=== PATIENT | female | born 1935 | race Caucasian/White ===

== ENCOUNTER 2023-02-11 23:25 | Outpatient (CLI) | payer MEDICARE, BC, SELFPAY | END 2023-02-11 23:26 | disposition home or self-care (01) | LOC: AMB 02-12 19:10 | PROVIDERS: PCP Family Medicine; Visit Provider Internal Medicine | DX: R53.1 Weakness (principal) | CPT/HCPCS: A0998 ==

== ENCOUNTER 2023-10-16 16:26 | Outpatient (CLI) | payer MEDICARE, BC, SELFPAY | END 2023-10-16 16:27 | disposition home or self-care (01) | LOC: AMB 10-20 10:28 | PROVIDERS: PCP Family Medicine; Visit Provider Family Medicine | DX: M25.552 Pain in left hip (principal) | CPT/HCPCS: A0425; A0429 ==

== ENCOUNTER 2023-10-16 16:47 | Emergency (ER) | payer MEDICARE, BC, SELFPAY ==
--- NOTE | 2023-10-16 16:49 | ED.GENADULT ---
HPI - General Adult General Time Seen by Provider: 16:49 Date Seen: 10/16/23 Chief complaint: Extremity Pain/Injury, Lower Stated complaint: Hip pain Time Seen by Provider: 10/16/23 16:49 Source: patient, EMS, RN notes reviewed and old records reviewed Mode of arrival: EMS Limitations: no limitations History of Present Illness HPI narrative: 88-year-old female who comes in today by EMS with hip pain. Patient has atraumatic left hip pain on standing from a sitting position. No fall or injury. No back pain. Prior hip replacement on this side. No fever chills. Related Data Home Medications Medication Instructions Recorded Confirmed atorvastatin 10 mg tablet 10 mg PO DAILY 06/29/23 10/16/23 multivitamin (Multiple Vitamins 1 tab PO QDAY 06/29/23 10/16/23 tablet) warfarin 2 mg tablet 2 mg PO DAILY 06/29/23 10/16/23 Allergies Allergy/AdvReac Type Severity Reaction Status Date / Time adhesive Allergy Mild Verified 10/16/23 16:59 Penicillins AdvReac nausea and Verified 10/16/23 16:59 vomiting Sulfa (Sulfonamide AdvReac Nausea Verified 10/16/23 16:59 Antibiotics) PFSH [facility] Medical History (Updated 10/16/23 @ 17:03 by Sam Ren MD) Rotator cuff tear arthropathy ?M75.100 - Unspecified rotator cuff tear or rupture of unspecified shoulder, not specified as traumatic (ICD-10) ?M12.819 - Other specific arthropathies, not elsewhere classified, unspecified shoulder (ICD-10) Right shoulder pain ?M25.511 - Pain in right shoulder (ICD-10) MRSA (methicillin resistant Staphylococcus aureus) (06/22/06) ?A49.02 - Methicillin resistant Staphylococcus aureus infection, unspecified site (ICD-10) Hypokalemia ?E87.6 - Hypokalemia (ICD-10) Hip strain ?S76.019A - Strain of muscle, fascia and tendon of unspecified hip, initial encounter (ICD-10) Hemarthrosis of shoulder region ?M25.019 - Hemarthrosis, unspecified shoulder (ICD-10) Hemarthrosis of right knee ?M25.061 - Hemarthrosis, right knee (ICD-10) Fracture of hip ?S72.009A - Fracture of unspecified part of neck of unspecified femur, initial encounter for closed fracture (ICD-10) Deep vein thrombosis, lower left extremity (2006) ?I82.402 - Acute embolism and thrombosis of unspecified deep veins of left lower extremity (ICD-10) Bilateral pulmonary embolism (2005) ?I26.99 - Other pulmonary embolism without acute cor pulmonale (ICD-10) Colon cancer ?C18.9 - Malignant neoplasm of colon, unspecified (ICD-10) Surgical History (Updated 06/29/23 @ 09:45 by Perla Cardoza ~ [facility], [facility]) 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) ?Z96.642 - Presence of left artificial hip joint (ICD-10) H/O partial resection of colon (01/05/06) ?Z90.49 - Acquired absence of other specified parts of digestive tract (ICD-10) Status post fine needle aspiration (04/04/12) ?Z98.890 - Other specified postprocedural states (ICD-10) History of phacoemulsification of cataract of right eye with intraocular lens implantation (07/24/14) ?Z98.41 - Cataract extraction status, right eye (ICD-10) ?Z96.1 - Presence of intraocular lens (ICD-10) History of phacoemulsification of cataract of left eye with intraocular lens implantation (08/21/14) ?Z98.42 - Cataract extraction status, left eye (ICD-10) ?Z96.1 - Presence of intraocular lens (ICD-10) History of ventral hernia repair (05/04/06) ?Z98.890 - Other specified postprocedural states (ICD-10) ?Z87.19 - Personal history of other diseases of the digestive system (ICD-10) History of colostomy (1999) 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) ?Z96.611 - Presence of right artificial shoulder joint (ICD-10) Social History (Updated 06/29/23 @ 09:39 by Perla Cardoza ~ [facility], [facility]) Smoking Status: Never smoker Do you use any of these nicotine containing products: None Second hand tobacco smoke exposure: No How often do you have a drink containing alcohol: 2-4 times a month AUDIT-C Alcohol total score: 2 Non-prescribed substance use: denies use Exam Narrative: Exam Narrative: General: well nourished , NAD Head: Atraumatic and normocephalic ENT: External ears and external nose are normal Eyes: Conjunctiva clear, pupils are equal reactive, external ocular motions are intact Neck: Full spontaneous range of motion of the neck Lungs: No respiratory distress Musculoskeletal: Tenderness the left hip, pain with adduction across midline, mild pain with forward flexion Neurologic: No gross focal neurologic deficits Skin: No rashes Psych: Mood and affect are appropriate Const: Vital Signs, click to edit/add: Vital Signs - 24 hr 10/16/23 16:50 Temperature 98.7 F Pulse Rate [Left P ulse Oximeter] 76 Respiratory Rate 16 Blood Pressure [Ri ght Upper Arm] 192/99 H Pulse Oximetry 99 Course Course ED Course: Patient seen and examined, reviewed prior orthopedic visit from June 18 patient was seen with osteoarthritis of the left knee, had a knee injection at that time with Marcaine and Depo-Medrol. Patient presents with left hip pain, no fall or injury, she noted that when she stood up from a sitting position. On exam she has tenderness over the greater trochanter and some pain with adduction. Prior hip replacement, symptoms with are most consistent with greater trochanteric pain syndrome. Labs are ordered along with ibuprofen. Reevaluation(s) Time of Reevaluation #1: 17:27 Reevaluation #1: X-ray of the left hip independently interpreted by me does not demonstrate any acute abnormality, prosthetic is in place. Patient to ambulate to the bathroom and will dispo based on ambulation ability and pain control pain Vital Signs Vital signs: Initial Vital Signs Temperature 98.7 F 10/16/23 16:50 Temperature Source Temporal Artery Scan 10/16/23 16:50 Pulse Rate 76 10/16/23 16:50 Respiratory Rate 16 10/16/23 16:50 Blood Pressure 192/99 H 10/16/23 16:50 Blood Pressure Mean 130 H 10/16/23 16:50 Blood Pressure Position Supine 10/16/23 16:50 Pulse Oximetry 99 10/16/23 16:50 Vital Signs Temperature 98.7 F 10/16/23 16:50 Pulse Rate 76 10/16/23 16:50 Respiratory Rate 16 10/16/23 16:50 Blood Pressure 192/99 H 10/16/23 16:50 Pulse Oximetry 99 10/16/23 16:50 Temperature 98.7 F 10/16/23 16:50 Pulse Rate 76 10/16/23 16:50 Respiratory Rate 16 10/16/23 16:50 Blood Pressure 192/99 H 10/16/23 16:50 Pulse Oximetry 99 10/16/23 16:50 Medications Administered Medications: Generic Name Dose Route Start Last Admin Trade Name Freq PRN Reason Stop Dose Admin Hydrocodone Bitart/Acetaminophen 1 tab 10/16/23 18:25 10/16/23 18:32 Hydrocodone-Acetamin 5-325 Mg 1 Tab PO 10/16/23 18:26 1 tab ONCE ONE Administration Discontinued Medications Generic Name Dose Route Start Last Admin Trade Name Freq PRN Reason Stop Dose Admin Ibuprofen 400 mg 10/16/23 17:01 10/16/23 17:21 Ibuprofen 600 Mg Tablet PO 10/16/23 17:02 400 mg ONCE ONE Administration Lidocaine 1 patch 10/16/23 17:01 10/16/23 17:20 Lidocaine 5% Patch TRANSDERMA 10/16/23 17:02 1 patch ONCE ONE Administration Protocol Discharge Plan Discharge Clinical Impression: Greater trochanteric pain syndrome of left lower extremity Patient Disposition: Home, Self-Care Condition: Stable Instructions: Hip Pain (ED) Additional Instructions: Take Tylenol and ibuprofen Activity Level: Activity as Tolerated and Use Walker Discharge Diet: Diabetic Prescriptions: No Action warfarin 2 mg tablet 2 mg PO DAILY atorvastatin 10 mg tablet 10 mg PO DAILY multivitamin [Multiple Vitamins] Tablet 1 tab PO QDAY Follow Up/Referrals: Geri Clancy DO [Primary Care Provider] - Stand Alone Forms: MyHealth Info Instructions
[2023-10-16 16:50] VITALS: BP 192/99; PULSE 76; RESP 16; TEMP 37.1; O2SAT 99; BMI 23.6
--- NOTE | 2023-10-16 17:01 | XR_ITS ---
Patient: DARSHANA BHARDWAJ Facility:?[facility] Patient ID:?[id number] Site Patient ID:?[id number]. Site :?[id number] Study:?XRay-Hip Left 2 VIEW AND PELVIS-10/16/2023 5:20:59 PM Ordering Physician:DILMA Final Report: INDICATION: Pain no trauma TECHNIQUE: AP pelvis and left hip views FINDINGS/IMPRESSION: Normal alignment. No acute fracture or acute osseous abnormalities are visualized. Left hip arthroplasty. Vascular calcifications. Dictated by Nuzhat Booker MD @ 10/16/2023 5:42:16 PM Signed by:?Nuzhat Booker MD @10/16/2023 5:42:16 PM (Electronic Signature)
[2023-10-16] MEDS: LIDOCAINE 5% PATCH 1 PATCH TRANSDERMA (17:20)
[2023-10-16] MEDS: IBUPROFEN 600 MG TABLET 400 MG PO (17:21)
[2023-10-16 18:30] VITALS: BP 189/96
[2023-10-16] MEDS: HYDROCODONE-ACETAMIN 5-325 MG 1 TAB PO (18:32)
== END 2023-10-16 19:22 | disposition home or self-care (01) ==
LOC: ED 17:37
PROVIDERS: Emergency Provider Family Medicine; PCP Family Medicine
DX: M70.62 Trochanteric bursitis, left hip (principal)
CPT/HCPCS: 73502; 99283; 99284; A9270

== ENCOUNTER 2023-10-31 09:14 | Emergency (ER) | payer MEDICARE, BC, SELFPAY ==
[2023-10-31 09:21] VITALS: BP 109/68; PULSE 80; RESP 18; TEMP 36.9; O2SAT 99; BMI 22.8
--- NOTE | 2023-10-31 09:34 | CRLHL7_ITS ---
For Patients: As a result of the Century Cures Act, medical imaging exams and procedure reports are released immediately into your electronic medical record. You may view this report before your referring provider. If you have questions, please contact your health care provider. INDICATION: Pain x2 weeks, extensive bruising to thigh. (Sic) COMPARISON: 10/16/2023 TECHNIQUE: Views: AP pelvis, AP left hip, frogleg lateral left hip (3 images) FINDINGS: Mineralization: Diffuse osteopenia. Alignment: Normal. Bones and Joints: No fracture is identified. Intact bipolar left hip arthroplasty with a cemented femoral stem. Mild osteoarthrosis of the right hip and bilateral sacroiliac joints. Soft Tissues: Unremarkable. Vascular calcifications are noted incidentally. IMPRESSION: No acute findings. Incidental findings described above. Dictated by Kelvin Alberts MD @ 10/31/2023 10:09:44 AM (Electronically Signed)
--- NOTE | 2023-10-31 09:38 | ED_ITS ---
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 She presents because of concerns with bruising to her left thigh. Apparently she was here couple of weeks ago after standing up and experiencing pain in her left hip. She does have a history of hip replacement on that side. She had x-rays at that time that showed no acute findings. At some point after that she noted bruising developing on her left thigh. This is what brought her in today, she said she was concerned that it would get worse. She still has some pain in the hip, but she says it is hard for her to know whether it is better or not because she also has pain in her knee and her foot on that side. She believes her last INR was a few weeks ago was 2. She denies any trauma. Related Data Home Medications ?Medication ?Instructions ?Recorded ?Confirmed atorvastatin 10 mg tablet 10 mg PO DAILY 06/29/23 10/16/23 multivitamin (Multiple Vitamins 1 tab PO QDAY 06/29/23 10/16/23 tablet) warfarin 2 mg tablet 2 mg PO DAILY 06/29/23 10/16/23 Allergies Allergy/AdvReac Type Severity Reaction Status Date / Time adhesive Allergy Mild Verified 10/16/23 16:59 Penicillins AdvReac nausea and Verified 10/16/23 16:59 vomiting Sulfa (Sulfonamide AdvReac Nausea Verified 10/16/23 16:59 Antibiotics) Review of Systems Status of ROS: Reports: 6 or more systems reviewed and unremarkable except as noted in History and below [facility] Medical History Rotator cuff tear arthropathy ?M75.100 - Unspecified rotator cuff tear or rupture of unspecified shoulder, not specified as traumatic (ICD-10) ?M12.819 - Other specific arthropathies, not elsewhere classified, unspecified shoulder (ICD-10) Right shoulder pain ?M25.511 - Pain in right shoulder (ICD-10) MRSA (methicillin resistant Staphylococcus aureus) (06/22/06) ?A49.02 - Methicillin resistant Staphylococcus aureus infection, unspecified site (ICD-10) Hypokalemia ?E87.6 - Hypokalemia (ICD-10) Hip strain ?S76.019A - Strain of muscle, fascia and tendon of unspecified hip, initial encounter (ICD-10) Hemarthrosis of shoulder region ?M25.019 - Hemarthrosis, unspecified shoulder (ICD-10) Hemarthrosis of right knee ?M25.061 - Hemarthrosis, right knee (ICD-10) Fracture of hip ?S72.009A - Fracture of unspecified part of neck of unspecified femur, initial encounter for closed fracture (ICD-10) Deep vein thrombosis, lower left extremity (2005) ?I82.402 - Acute embolism and thrombosis of unspecified deep veins of left lower extremity (ICD-10) Bilateral pulmonary embolism (2005) ?I26.99 - Other pulmonary embolism without acute cor pulmonale (ICD-10) Colon cancer ?C18.9 - Malignant neoplasm of colon, unspecified (ICD-10) Surgical History 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) ?Z96.642 - Presence of left artificial hip joint (ICD-10) H/O partial resection of colon (01/05/06) ?Z90.49 - Acquired absence of other specified parts of digestive tract (ICD- 10) Status post fine needle aspiration (04/04/12) ?Z98.890 - Other specified postprocedural states (ICD-10) History of phacoemulsification of cataract of right eye with intraocular lens implantation (07/24/14) ?Z98.41 - Cataract extraction status, right eye (ICD-10) ?Z96.1 - Presence of intraocular lens (ICD-10) History of phacoemulsification of cataract of left eye with intraocular lens implantation (08/21/14) ?Z98.42 - Cataract extraction status, left eye (ICD-10) ?Z96.1 - Presence of intraocular lens (ICD-10) History of ventral hernia repair (05/04/06) ?Z98.890 - Other specified postprocedural states (ICD-10) ?Z87.19 - Personal history of other diseases of the digestive system (ICD-10) History of colostomy (1999) 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 In general, alert, well-appearing woman. Extremities: She has extensive subcutaneous bruising noted on the left anterior an inner thigh. There is no significant hematoma, no significant swelling. Distal CMS intact. She has a little bit of an effusion noted in the left knee but there is no erythema warmth, range of motion is intact. She says that knee is ?always bad. Skin: Warm and dry. No other bruising. Const: Vital Signs, click to edit/add: Vital Signs - 24 hr 10/31/23 09:21 Temperature 98.4 F Pulse Rate [Right Pulse Oximeter] 80 Respiratory Rate 18 Blood Pressure [Ri ght Upper Arm] 109/68 Pulse Oximetry 99 Oxygen Delivery Me thod Room Air Documenting provider has reviewed patient's vital signs: yes Course Course ED Course: Nurse reports that she was able to bear weight on the left leg seemingly without difficulty. I reviewed prior records, including the x-ray from 2 weeks ago. I do think it is worthwhile checking an INR in making sure that she is not supratherapeutic. Her exam today simply shows bruising, likely related to whatever event happened a couple of weeks ago. Repeat x-rays of the left hip are negative by my review, negative by radiology read. INR is therapeutic at 2.5. Discussed that this is bruising, will resolve on its own although it may take several weeks. No significant hematoma is seen here but if she has worsening swelling or pain, redness, fever etcetera she should return. Otherwise, Tylenol if needed. Ice may or may not be helpful at this point. She is discharged ambulatory. Primary care follow-up as needed. Vital Signs Vital signs: Initial Vital Signs Temperature 98.4 F 10/31/23 09:21 Temperature Source Temporal Artery Scan 10/31/23 09:21 Pulse Rate 80 10/31/23 09:21 Respiratory Rate 18 10/31/23 09:21 Blood Pressure 109/68 10/31/23 09:21 Blood Pressure Mean 81 10/31/23 09:21 Blood Pressure Position Sitting 10/31/23 09:21 Pulse Oximetry 99 10/31/23 09:21 Oxygen Delivery Method Room Air 10/31/23 09:21 Vital Signs Temperature 98.4 F 10/31/23 09:21 Pulse Rate 80 10/31/23 09:21 Respiratory Rate 18 10/31/23 09:21 Blood Pressure 109/68 10/31/23 09:21 Pulse Oximetry 99 10/31/23 09:21 Oxygen Delivery Method Room Air 10/31/23 09:21 Temperature 98.4 F 10/31/23 09:21 Pulse Rate 80 10/31/23 09:21 Respiratory Rate 18 10/31/23 09:21 Blood Pressure 109/68 10/31/23 09:21 Pulse Oximetry 99 10/31/23 09:21 Oxygen Delivery Method Room Air 10/31/23 09:21 Medical Decision Making Lab Data Labs: Lab Results 10/31/23 Range/Units 10:05 INR 2.54 H (0.91-1.10) Discharge Plan Discharge Clinical Impression: Traumatic ecchymosis of left thigh Patient Disposition: Home, Self-Care Condition: Stable Instructions: Contusion in Adults (ED) Additional Instructions: Your exam shows extensive bruising of your thigh. X-rays today remain normal without evidence of any broken bones. Your INR is therapeutic at 2.5. Bruising will slowly resolve but this can take weeks. If you have significant swelling or increasing pain, redness, fever, return for re-evaluation. Prescriptions: No Action warfarin 2 mg tablet 2 mg PO DAILY atorvastatin 10 mg tablet 10 mg PO DAILY multivitamin [Multiple Vitamins] Tablet 1 tab PO QDAY Follow Up/Referrals: Geri Clancy DO [Primary Care Provider] - Stand Alone Forms: MyHealth Info Instructions
[2023-10-31 10:27] LABS: INR 2.54 (0.91-1.10); Prothrombin Time 29.3 Seconds
== END 2023-10-31 11:13 | disposition home or self-care (01) ==
PROVIDERS: Emergency Provider Emergency Medicine; PCP Family Medicine
DX: M79.652 Pain in left thigh (principal); R23.3 Spontaneous ecchymoses
CPT/HCPCS: 36415; 73502; 85610; 99283; 99284

== ENCOUNTER 2023-11-03 06:26 | Outpatient (CLI) | payer MEDICARE, BC, SELFPAY | END 2023-11-03 06:27 | disposition home or self-care (01) | LOC: AMB 11-06 09:23 | PROVIDERS: PCP Family Medicine; Visit Provider Family Medicine | DX: R53.1 Weakness (principal) | CPT/HCPCS: A0998 ==

== ENCOUNTER 2024-02-12 08:50 | Outpatient (CLI) | payer MEDICARE, BC, SELFPAY | END 2024-02-12 08:51 | disposition home or self-care (01) | LOC: AMB 02-14 03:17 | PROVIDERS: PCP Family Medicine; Visit Provider Emergency Medicine | DX: S49.91XA Unspecified injury of right shoulder and upper arm, initial encounter (principal); R55 Syncope and collapse; W18.11XA Fall from or off toilet without subsequent striking against object, initial encounter; Y92.031 Bathroom in apartment as the place of occurrence of the external cause | CPT/HCPCS: A0425; A0427 ==

== ENCOUNTER 2024-02-12 09:23 | Emergency (ER) | payer MEDICARE, BC, SELFPAY ==
[2024-02-12] VITALS (11 sets, daily range): BP systolic 119–144; BP diastolic 72–87; PULSE 67–81; RESP 16; TEMP 35.9; O2SAT 93–98
[2024-02-12] MEDS: ONDANSETRON 2 MG/ML inj 4 MG IVP (09:27)
[2024-02-12] MEDS: fentaNYL 100 MCG/2 ML inj 50 MCG IVP ×2 (09:27→10:25)
--- NOTE | 2024-02-12 09:28 | CRLHL7_ITS ---
For Patients: As a result of the 21st Century Cures Act, medical imaging exams and procedure reports are released immediately into your electronic medical record. You may view this report before your referring provider. If you have questions, please contact your health care provider. INDICATION: Trauma, abdominal pain, right hip pain, warfarin, shoulder fracture. COMPARISON: Same-day CT cervical spine, shoulder radiograph 02/12/2024 TECHNIQUE: CT chest, abdomen, and pelvis with contrast. Multiplanar axial, coronal, and sagittal reformats are included. MIP images to improve detection of pulmonary nodules are included. Intravenous contrast: 69 mL Isovue 370. FINDINGS: CHEST Airway: Normal tracheobronchial tree. Lungs: No worrisome pulmonary nodules. No consolidations. Normal appearance of the pulmonary interstitium. Pleura: No pleural effusion. No pneumothorax. Lymph nodes: No thoracic adenopathy. Mediastinum: No pneumomediastinum. Macro nodular thyroid with several coarse calcifications. Heart and great vessels: No pericardial effusion. Normal cardiac chamber size. Scattered atherosclerotic plaques. No aortic aneurysm. Normal caliber main pulmonary artery. Chest wall: Normal. No masses. ABDOMEN AND PELVIS Liver: Normal. No mass. Gallbladder and bile ducts: Normal gallbladder. No bile duct dilation. Pancreas: Normal. Spleen: Normal. Adrenal glands: Normal. Kidneys: Normal parenchyma. No cyst or solid mass. No calculi. No urinary tract dilation. Urinary bladder: Partially filled. Pelvis: See below regarding pelvic hematoma. Small left ovarian cyst measures 2.2 cm.. Vessels: Atherosclerotic vascular calcifications, moderate to heavy. No aortic aneurysm. Bowel: Left lower quadrant colostomy. Very large parastomal hernia containing redundant colon. Moderate amount of stool in the residual rectum. No dilated or inflamed small bowel. Lymph nodes: No adenopathy. Peritoneum: No ascites or free air Abdominal wall: Large parastomal hernia. BONES: Mildly impacted subcapital right femoral neck fracture. Mildly displaced right medial superior pubic ramus fracture with a small adjacent extra pelvic hematoma. No findings that are suspicious for active bleeding on this single phase CT. Nondisplaced right inferior pubic ramus fracture. T8 compression fracture of indeterminate acuity with about 50 percent loss of height. No cortical disruption or posterior cortical retropulsion. Right humeral periprosthetic fracture seen on the milling machine operator image. Left hip arthroplasty. No focally destructive bone lesions. IMPRESSION: 1. Mildly displaced right superior pubic ramus fracture with a small extraperitoneal hematoma. Nondisplaced right inferior pubic ramus fracture. 2. Mildly impacted right subcapital femoral neck fracture. 3. T8 vertebral body compression fracture of indeterminate acuity. No cortical disruption or paraspinal hematoma. 4. Right periprosthetic humeral fracture seen on the milling machine operator image. 5. No visceral trauma seen. Impression points 1 and [address] Rocha at about 10 a.m. on 02/12/2024. Please note that all CT scans at this facility use dose modulation, iterative reconstruction, and/or weight-based dosing when appropriate to reduce radiation dose to as low as reasonably achievable. Dictated by Hui Thomas MD @ 02/12/2024 10:07:05 AM (Electronically Signed)
--- NOTE | 2024-02-12 09:28 | CRLHL7_ITS ---
For Patients: As a result of the Cures Act, medical imaging exams and procedure reports are released immediately into your electronic medical record. You may view this report before your referring provider. If you have questions, please contact your health care provider. Indication: Trauma, fall. Technique: Right elbow 2 views. Comparison: None. Findings: Bones: Alignment is normal. No fractures or bone lesions. Joint spaces: Unremarkable. No sign of joint effusion. Soft tissues: Unremarkable. Impression: No sign of acute injury. Dictated by Sebastian Ortega MD @ 02/12/2024 10:26:03 AM (Electronically Signed)
--- NOTE | 2024-02-12 09:28 | CRLHL7_ITS ---
For Patients: As a result of the Cures Act, medical imaging exams and procedure reports are released immediately into your electronic medical record. You may view this report before your referring provider. If you have questions, please contact your health care provider. INDICATION: Fall, distracting injury. COMPARISON: None. TECHNIQUE: CT of the cervical spine without contrast. Multiplanar axial, coronal, and sagittal reformats were reconstructed. FINDINGS: No fracture. Exaggerated cervical lordosis. No listhesis. Multilevel moderate to severe disc degenerative change. Multilevel moderate to severe facet arthritis. No severe neural foraminal narrowing. No central canal stenosis. No destructive bony lesions. No cervical prevertebral soft tissue swelling macro nodular thyroid with several calcifications. IMPRESSION: No acute or traumatic findings on cervical spine CT. Please note that all CT scans at this facility use dose modulation, iterative reconstruction, and/or weight-based dosing when appropriate to reduce radiation dose to as low as reasonably achievable. Dictated by Hui Thomas MD @ 02/12/2024 9:58:11 AM (Electronically Signed)
--- NOTE | 2024-02-12 09:28 | CRLHL7_ITS ---
For Patients: As a result of the Cures Act, medical imaging exams and procedure reports are released immediately into your electronic medical record. You may view this report before your referring provider. If you have questions, please contact your health care provider. Indication: Trauma, fall. Technique: Right shoulder 2 views. Comparison: 02/27/2020. Findings/Impression: Bones: Acute displaced periprosthetic fracture present in the proximal shaft of the right humerus. No other osseous abnormality. Joint spaces: Total shoulder arthroplasty is present with the humeral component affected by the fracture. Soft tissues: Unremarkable. Dictated by Sebastian Ortega MD @ 02/12/2024 10:27:14 AM (Electronically Signed)
--- NOTE | 2024-02-12 09:29 | CRLHL7_ITS ---
For Patients: As a result of the Century Cures Act, medical imaging exams and procedure reports are released immediately into your electronic medical record. You may view this report before your referring provider. If you have questions, please contact your health care provider. INDICATION: Fall, scalp laceration, on warfarin. COMPARISON: 02/07/2016 TECHNIQUE: CT of the brain / head without intravenous contrast. Multiplanar axial, coronal, and sagittal reformats were reconstructed. FINDINGS: Acute subdural hematoma along the right lateral convexity. Hematoma measures up to 1.2 centimeters in maximum thickness. There is some effacement of the immediately underlying subarachnoid spaces. There is 0.5 cm [id number] midline shift. Age-related parenchymal volume loss. No acute or subacute cortically based infarct. Scattered white matter hypodensities may be related to chronic microvascular ischemia. No mass or mass effect. Normal ventricles. No skull fractures. No worrisome focal bone lesion. Paranasal sinuses and mastoids are clear. Right periorbital soft tissue contusion. No orbital fracture or globe injury. IMPRESSION: Right lateral convexity acute subdural hematoma. There is 5 millimeters of associated midline shift. Discussed with Dr. Rocha at 9:55 a.m. on 02/12/2024. Please note that all CT scans at this facility use dose modulation, iterative reconstruction, and/or weight-based dosing when appropriate to reduce radiation dose to as low as reasonably achievable. Dictated by Hui Thomas MD @ 02/12/2024 9:55:58 AM (Electronically Signed)
[2024-02-12 09:34] LABS: Creatinine, Point-of-Care* 0.9 mg/dl (0.6-1.3)
[2024-02-12 09:40] LABS: Basophils Absolute Auto 0.04 K/uL (0.00-0.30); Basophils Percent Auto 0.4 % (0.0-3.0); Eosinophils Absolute Auto 0.09 K/uL (0.00-0.50); Eosinophils Percent Auto 0.9 % (0.0-7.0); Hematocrit 31.7 % (33.0-51.0); Hemoglobin* 10.7 gm/dL (12.0-16.0); Immature Granulocytes Abs Auto 0.13 K/uL (0.00-0.30); Immature Granulocytes Pct Auto 1.4 %; Mean Corpuscular HGB Conc 34 gm/dL (32-36); Mean Corpuscular Hemoglobin 32 pg (26-34); Mean Corpuscular Volume 95 fL (80-100); Monocytes Percent Auto 4.5 % (0.0-11.0); Neutrophils Percent Auto 74.8 % (42.0-72.0); Platelet Count* 162 K/uL (140-440); RDW Coefficient of Variation % 11.9 % (11.5-15.5); Red Blood Count 3.34 m/uL (4.00-5.20); White Blood Count* 9.52 K/uL (4.50-11.00)
[2024-02-12 09:41] LABS: Lactate* 4.8 mmol/L (0.5-1.9); Slide Review Reflex No
[2024-02-12 09:49] LABS: Chloride* 108 mmol/L (96-114); Potassium* 3.3 mmol/L (3.6-5.1); Sodium* 139 mmol/L (135-149)
[2024-02-12 09:51] LABS: Creatinine* 0.7 mg/dL (0.5-1.5); Estimated Glomerular Filt Rate 83 ml/min; INR 2.62 (0.91-1.10)
[2024-02-12 09:52] LABS: Anion Gap 12 mEq/L (7-15); Blood Urea Nitrogen* 26 mg/dL (7-30); Carbon Dioxide* 19 mmol/L (20-32); Glucose* 157 mg/dL (60-115)
[2024-02-12 10:04] LABS: Troponin I* 0.01 ng/mL (0.01-0.04)
[2024-02-12] MEDS: PHYTONADIONE (VIT K1) 10 MG in 0.9 % SODIUM CHLORIDE 50 ml 50 ML 100 MG IVPB (10:08)
--- NOTE | 2024-02-12 10:12 | ED_ITS ---
HPI - General Adult General Date Seen: 02/12/24 Chief complaint: Syncope/Fainted Stated complaint: fall Time Seen by Provider: 02/12/24 09:28 History of Present Illness HPI narrative: This is an 88-year-old female on warfarin brought to the ER today by EMS from [facility] apartment for a ground level fall with head injury, possible shoulder dislocation. History from paramedics is that the patient got up sometime this morning, probably around 7:00 a.m. (maybe 2 hours prior to arrival) to go to the bathroom. She got dizzy when she stood up off the toilet and fell to the floor bathroom. No reported loss of consciousness. She injured herself when he fell she fell. She hit her head. Unknown she had loss of consciousness. She also injured her right shoulder and right hip. She was unable to get off the floor. She was banging on the floor to try to get help from her neighbors but it took a couple of hours until anyone heard. One of her neighbors heard her banging on the floor, and they gained entrance to her apartment with the assistance of the full service supervisor of the building. EMS was called. EMS reports that there was a fair amount of dry blood on the floor of her bathroom, maybe 200 mL. The patient was alert. No headache. Mildly nauseous. She had significant pain with obvious deformity and bruising at the right shoulder. Also possibly right hip pain. She was brought in immediately by EMS. Pre-hospital TTA was called by paramedics. History from the patient confirms that she was feeling normally last night. She fell getting off the toilet this morning. She thinks it was probably around 7:00 a.m.. It definitely did not occur overnight or last night. She was on the floor a couple of hours at most. She is not sure how she fell. She may have gotten dizzy when she stood upper maybe passed out. She does not recall any chest pain or palpitations. She is complaining primarily of right shoulder pain. She has intact distal wiggling her fingers and intact distal sensation in her hand. She also has pain in her right hip and cannot bend and flex her right hip. She had bleeding from a right eyebrow laceration. She denies headache. She is mildly nauseous. She know she is on warfarin. No other meds. Unknown recent INR Related Data Home Medications ?Medication ?Instructions ?Recorded ?Confirmed atorvastatin 10 mg tablet 10 mg PO DAILY 06/29/23 10/16/23 multivitamin (Multiple Vitamins 1 tab PO QDAY 06/29/23 10/16/23 tablet) warfarin 2 mg tablet 2 mg PO DAILY 06/29/23 10/16/23 Allergies Allergy/AdvReac Type Severity Reaction Status Date / Time adhesive Allergy Mild Verified 10/16/23 16:59 Penicillins AdvReac nausea and Verified 10/16/23 16:59 vomiting Sulfa (Sulfonamide AdvReac Nausea Verified 10/16/23 16:59 Antibiotics) [facility] Medical History Rotator cuff tear arthropathy ?M75.100 - Unspecified rotator cuff tear or rupture of unspecified shoulder, not specified as traumatic (ICD-10) ?M12.819 - Other specific arthropathies, not elsewhere classified, unspecified shoulder (ICD-10) Right shoulder pain ?M25.511 - Pain in right shoulder (ICD-10) MRSA (methicillin resistant Staphylococcus aureus) (06/22/06) ?A49.02 - Methicillin resistant Staphylococcus aureus infection, unspecified site (ICD-10) Hypokalemia ?E87.6 - Hypokalemia (ICD-10) Hip strain ?S76.019A - Strain of muscle, fascia and tendon of unspecified hip, initial encounter (ICD-10) Hemarthrosis of shoulder region ?M25.019 - Hemarthrosis, unspecified shoulder (ICD-10) Hemarthrosis of right knee ?M25.061 - Hemarthrosis, right knee (ICD-10) Fracture of hip ?S72.009A - Fracture of unspecified part of neck of unspecified femur, initial encounter for closed fracture (ICD-10) Deep vein thrombosis, lower left extremity (2005) ?I82.402 - Acute embolism and thrombosis of unspecified deep veins of left lower extremity (ICD-10) Bilateral pulmonary embolism (2005) ?I26.99 - Other pulmonary embolism without acute cor pulmonale (ICD-10) Colon cancer ?C18.9 - Malignant neoplasm of colon, unspecified (ICD-10) Surgical History 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) ?Z96.642 - Presence of left artificial hip joint (ICD-10) H/O partial resection of colon (01/05/06) ?Z90.49 - Acquired absence of other specified parts of digestive tract (ICD- 10) Status post fine needle aspiration (04/04/12) ?Z98.890 - Other specified postprocedural states (ICD-10) History of phacoemulsification of cataract of right eye with intraocular lens implantation (07/24/14) ?Z98.41 - Cataract extraction status, right eye (ICD-10) ?Z96.1 - Presence of intraocular lens (ICD-10) History of phacoemulsification of cataract of left eye with intraocular lens implantation (08/21/14) ?Z98.42 - Cataract extraction status, left eye (ICD-10) ?Z96.1 - Presence of intraocular lens (ICD-10) History of ventral hernia repair (05/04/06) ?Z98.890 - Other specified postprocedural states (ICD-10) ?Z87.19 - Personal history of other diseases of the digestive system (ICD-10) History of colostomy (1999) 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 Speaking clearly. Phonation normal. No stridor. B- breathing easily. Lung sounds clear and equal. Oxygen saturation normal on room air C- she has quite a bit of dry blood on the right side of her face, in her right hair, also dry blood on her right arm and down to her right fingers. Paramedics report that there was a pool of blood may be a foot in diameter on the floor around her body and that the blood was dry and she was sticky to the floor when they arrived. no active arterial or brisk bleeding. She looks pale, but Blood pressure stable. Symmetric pulses and cap refill in 4 extremities. D- alert and oriented x3. GCS 15. No focal deficits. Constitutional: Appears well-developed and well-nourished. Alert. Conversant. Non toxic. HENT: Head: Dry blood on her right face and right scalp. After we washed up blood it appears that she has a small right eyebrow laceration. No definite scalp laceration. No active bleeding after cleaning up the blood. Laceration will require primary closure but we will defer that to the receiving trauma center. Nose: Nose normal. Mouth/Throat: Oral mucosa is clear and moist. no trismus. Pharynx normal. Tonsils symmetric. No tonsillar enlargement, erythema, or exudate. Eyes: Conjunctivae normal. EOM normal. Pupils equal, round, and reactive to light. No scleral icterus. Neck: Normal range of motion. Neck supple. No tracheal deviation present. Neck cannot be cleared by clinical criteria because she has distracting orthopedic injuries. Cardiovascular: Normal rate, regular rhythm. No gallop. No friction rub. No murmur heard. Symmetric radial and PT artery pulses Pulmonary/Chest: Effort normal. No stridor. No respiratory distress. No wheezes. No rales. No rhonchi . No tenderness. Abdominal: Soft. Bowel sounds normal. No distension. No mass. No tenderness. No rebound. No guarding. Left lower quadrant ostomy. Musculoskeletal: RUE: She has obvious deformity of the right proximal humerus shoulder with some ecchymosis there. Suspicious for probably a right proximal humerus fracture. Stat portable bedside x-rays were obtained and do reveal a periprosthetic right humerus fracture. Initially her right arm was covered in dry blood. After we washed off we can see that she has a small< 1 cm wound on the skin that has slow dark red venous oozing suspicious for possible open humerus fracture. Range of motion of the elbow limited by arm pain. Intact distal radial, median, ulnar nerve sensory function. Strong radial pulse. Normal distal cap refill. LUE: Normal range of motion. No tenderness. No deformity RLE: Right hip pain. No obvious foreshortening or rotation. Unable to range the right hip due to pain. Pelvis is stable. No crepitus. Strong DP and PT pulses. Normal distal cap refill. Intact toe wiggling and ankle plantar flexion/dorsiflexion. Neurovascularly intact. LLE: Normal range of motion. No edema. No tenderness. No deformity Initially unable to roll patient for back exam, but palpating underneath her back reveals no obvious tenderness of the thoracic or lumbar spine. No step- off. Neurological: Alert and oriented to person, place, and time. Normal strength. CN II-VII intact. No sensory deficit. GCS eye subscore is 4. GCS verbal subscore is 5. GCS motor subscore is 6. Normal coordination gait not assessable due to multiple injuries. Skin: Skin is pale warm and dry. No rash noted. No pallor. Normal capillary refill. Psychiatric: Normal mood. Normal affect. Const: Vital Signs, click to edit/add: Vital Signs - 24 hr 02/12/24 09:25 Temperature 96.6 F L Pulse Rate [Pulse Oximeter] 81 Respiratory Rate 16 Blood Pressure [Ri ght Upper Arm] 144/87 H Pulse Oximetry 96 Oxygen Delivery Me thod Room Air Course Course ED Course: Patient arrived in the ER stay bro 1 as a pre-hospital trauma team activation. History taken from EMS providers. Primary survey was obtained and airway, breathing, circulation were adequately intact. She does have signs of head injury with what appears to be a right eyebrow laceration. She does have fairly significant blood loss apparently from that. No definite scalp laceration at this point. No active bleeding. She has signs of an obvious right shoulder or proximal humerus fracture. Portable right shoulder x-rays were obtained and confirm a displaced periprosthetic proximal humerus fracture. She also has tenderness of the right hip and pelvis. Lung sounds are clear and rib cage is nontender. She received fentanyl 50 mcg IV and Zofran 4 mg IV. Point of care creatinine was normal. She was transfer directly to CT scan for further evaluation. CT head, C-spine, chest/abdomen/pelvis. I reviewed the CT images. By my read she has signs of a 5-10 mm right subdural hematoma with a small amount of midline shift. I called [facility]. at the same time, although INR was not back yet, I placed orders for Kcentra and vitamin K. I was on hold waiting for radiologist we in a different radiologist some [facility], called me. She confirmed that there is an acute right subdural hematoma with 5 mm midline shift. Initial report is that no C-spine injury. Initial report of her CT chest 7 pelvis does confirm a subcapital right femoral neck fracture, right pubic ramus fracture. No other internal bleeding or rib fractures. No hemothorax/pneumothorax. We placed a call to the level 1 trauma center at [facility] [place]. Discussed with Dr pool (ER) who accepted the patient in transfer. We then activated and emergent transfer from [place] to [facility]. I recheck the patient. GCS remains 15. She is alert. She is able to recall that she has a niece who works at the [employer] [facility] [place] in [place]. Patient is comfortable transferring to [place] although she knows her does not drive. Would recommend transfer to [place] rather than have it given the needs for Trauma surgery and Trauma Neurosurgery. Patient agrees. After we cleaned the dry blood off of her face and right arm she has what appears to be a small eyebrow laceration without much active bleeding. She has a very small laceration on the right arm which I am concerned represents a probable open humerus fracture. Ancef ordered. I placed phone calls to her , as well as to her secondary contact, her sister. They did not answer so I left messages. Recheck-patient now complaining of right humerus pain. Fentanyl 50 mcg IV ordered. She remains neurovascularly intact. Mental status is still alert. GCS 15. Protecting her airway. Stable for transfer, lights and sirens, to [facility]. Subsequent the patient's sister, Yulisa called back. She is updated about the patient's condition and transfer. She is agreeable. After that her patient's called back. Updated about her condition. He will work with Yulisa to help get transport up to [place]. Vital Signs Vital signs: Initial Vital Signs Temperature 96.6 F L 02/12/24 09:25 Temperature Source Temporal Artery Scan 02/12/24 09:25 Pulse Rate 81 02/12/24 09:25 Respiratory Rate 16 02/12/24 09:25 Blood Pressure 144/87 H 02/12/24 09:25 Blood Pressure Mean 106 H 02/12/24 09:25 Blood Pressure Position Supine 02/12/24 09:25 Pulse Oximetry 96 02/12/24 09:25 Oxygen Delivery Method Room Air 02/12/24 09:25 Vital Signs Temperature 96.6 F L 02/12/24 09:25 Pulse Rate 81 02/12/24 09:25 Respiratory Rate 16 02/12/24 09:25 Blood Pressure 144/87 H 02/12/24 09:25 Pulse Oximetry 96 02/12/24 09:25 Oxygen Delivery Method Room Air 02/12/24 09:25 Temperature 96.6 F L 02/12/24 09:25 Pulse Rate 81 02/12/24 09:25 Respiratory Rate 16 02/12/24 09:25 Blood Pressure 144/87 H 02/12/24 09:25 Pulse Oximetry 96 02/12/24 09:25 Oxygen Delivery Method Room Air 02/12/24 09:25 Medications Administered Medications: Generic Name Dose Route Start Last Admin Trade Name Freq PRN Reason Stop Dose Admin Phytonadione 10 mg/ Sodium 51 mls @ 100 mls/hr 02/12/24 09:53 02/12/24 10:08 Chloride IVPB 02/12/24 10:23 100 mls/hr ONCE ONE Administration Discontinued Medications Generic Name Dose Route Start Last Admin Trade Name Freq PRN Reason Stop Dose Admin Fentanyl 50 mcg 02/12/24 09:28 02/12/24 09:27 Fentanyl 100 Mcg/2 Ml Inj IVP 02/12/24 09:29 50 mcg ONCE ONE Administration Prothrombin Complex Concent ( 60 mls @ 180 mls/hr 02/12/24 09:53 02/12/24 10:09 Human) 1,500 unit/ IV IV 02/12/24 10:12 180 mls/hr Miscellaneous Supplies ONCE ONE Administration Ondansetron HCl 4 mg 02/12/24 09:28 02/12/24 09:27 Ondansetron 2 Mg/Ml Inj IVP 02/12/24 09:29 4 mg ONCE ONE Administration Medical Decision Making [facility] Narrative Medical decision making narrative: 88-year-old female on warfarin presenting to the ER today by EMS after she had a ground level fall. She fell while getting off the toilet this morning. 1. Unclear why she fell. Unclear if she just got dizzy or lightheaded or orthostatic or if she had a syncopal event. She does not recall any palpitations or chest pain. EKG here in the ER shows normal sinus rhythm but she does have a prolonged QT with a QTC of 491. May need further workup for possible syncope. 2. She is on warfarin. She does have signs of head injury. She had a moderate amount of bleeding reported by paramedics. No active bleeding here in the ER. It appears that she has a eyebrow laceration. No other definite scalp laceration or flap. Will defer primary closure of her laceration to the trauma center. Head CT scan does show a right subdural hematoma with 5 mm of midline shift. We ordered reversal for her warfarin with Kcentra and vitamin K. expeditious transfer to the trauma center is arranged. Patient's mental status remained stable while here in the ER. She is protecting her airway. Oxygenating well. At this point safe to transfer without intubation. 3. C-spine CT is negative by initial read. 4. She has obvious right shoulder pain, swelling, deformity an x-ray shows a periprosthetic right proximal humerus fracture. She is neurovascularly intact. Concerned this is an open fracture. Prophylactic antibiotics started here in the ER. Will require evaluation by Orthopedics at the receiving trauma center. 5. She has right hip pain. CT scan confirms a subcapital right femoral neck fracture. Also a right pubic ramus fracture. She is neurovascularly intact in the right leg. Will require evaluation of the trauma center. 6. Tetanus is up-to-date. I was able to arrange expeditious transfer to [facility]. Labs did come back showing an elevated venous lactic is 4.8. Hemoglobin 10.7. No previous baseline. She does look pale but not mottled. Blood pressure and pulse are stable. She is not beta blocked. At this point no need for immediate transfusion although will need to be monitored. It is potential that she did have external bleeding from her eyebrow laceration leading to some anemia. INR came back at 2.62. Already reversed with vitamin K and Kcentra. Troponin negative. Sodium normal. Potassium mildly low at 3.3. Bicarb mildly low at 19, suggesting possible dehydration. Blood sugar is 157. Anion gap is normal. Lab Data Labs: Lab Results 02/12/24 02/12/24 Range/Units 09:26 09:27 WBC 9.52 (4.50-11.00) K/uL RBC 3.34 L (4.00-5.20) m/uL Hgb 10.7 L (12.0-16.0) gm/dL Hct 31.7 L (33.0-51.0) % MCV 95 (80-100) fL MCH 32 (26-34) pg MCHC 34 (32-36) gm/dL RDW Coeff of Corrie 11.9 (11.5-15.5) % Plt Count 162 (140-440) K/uL Neut % (Auto) 74.8 H (42.0-72.0) % Lymph % (Auto) 18.0 L (20-44) % [place] % (Auto) 4.5 (0.0-11.0) % Eos % (Auto) 0.9 (0.0-7.0) % Baso % (Auto) 0.4 (0.0-3.0) % Neut # (Auto) 7.10 H (1.7-7.0) K/uL Lymph # (Auto) 1.70 (0.90-2.90) K/uL [place] # (Auto) 0.40 (0.00-0.90) K/UL Eos # (Auto) 0.09 (0.00-0.50) K/uL Baso # (Auto) 0.04 (0.00-0.30) K/uL Abs Immat Gran (auto) 0.13 (0.00-0.30) K/uL Imm/Tot Granulo (auto) 1.4 % INR 2.62 H (0.91-1.10) Sodium 139 (135-149) mmol/L Potassium 3.3 L (3.6-5.1) mmol/L Chloride 108 (96-114) mmol/L Carbon Dioxide 19 L (20-32) mmol/L Anion Gap 12 (7-15) mEq/L BUN 26 (7-30) mg/dL Creatinine 0.7 (0.5-1.5) mg/dL Estimated GFR 83 ml/min Glucose 157 H (60-115) mg/dL Lactate 4.8 H* (0.5-1.9) mmol/L Calcium 9.0 (8.4-10.6) mg/dL Troponin I 0.01 (0.01-0.04) ng/mL POC Creatinine 0.9 (0.6-1.3) mg/dl Critical Care Time Critical Care Time Critical Care Time: Yes Attestation: The patient required my highest level preparedness to intervene emergently and I personally spent this critical care time directly and personally managing the patient. This critical care time included: Obtaining a history; Examining the patient; Pulse oximetry; Ordering and reviewing of studies; Arranging urgent treatment with development of a management plan; Evaluation of patients re sponse to treatment; Frequent reassessment discussions with other providers. This critical care time was performed to assess and manage the high probability of imminent life-threatening deterioration that could result in multiorgan failure. It was exclusive of separate billable procedures and treating other patients and teaching time. Total Critical Care Time in Minutes: 30 Discharge Plan Discharge Clinical Impression: Acute subdural hematoma, Eyebrow laceration, Open fracture of proximal end of right humerus, Fracture of femoral neck, right Patient Disposition: Xfer Other Prescriptions: No Action warfarin 2 mg tablet 2 mg PO DAILY atorvastatin 10 mg tablet 10 mg PO DAILY multivitamin [Multiple Vitamins] Tablet 1 tab PO QDAY Stand Alone Forms: [employer] Info Instructions
[2024-02-12] MEDS: CEFAZOLIN 2 GM INJ IVP (10:19)
== END 2024-02-12 10:35 | disposition other institution (70) ==
LOC: ED 10:02
PROVIDERS: Emergency Provider Emergency Medicine; PCP Family Medicine
DX: S01.111A Laceration without foreign body of right eyelid and periocular area, initial encounter (principal); S72.001A Fracture of unspecified part of neck of right femur, initial encounter for closed fracture; S42.301A Unspecified fracture of shaft of humerus, right arm, initial encounter for closed fracture; I62.01 Nontraumatic acute subdural hemorrhage
CPT/HCPCS: 36415; 70450; 71260; 72125; 73030; 73070; 74177; 80048; 82565; 83605; 84484; 85025; 85610; 86850; 86900; 86901; 93005; 96365; 96366; 96375; 99285; 99291; G0390; J0690; J2405; J3010; J3430; J7168; Q9967

== ENCOUNTER 2024-02-12 10:19 | Outpatient (CLI) | payer MEDICARE, BC, SELFPAY | END 2024-02-12 10:20 | disposition home or self-care (01) | LOC: AMB 02-14 03:21 | PROVIDERS: PCP Family Medicine; Visit Provider Emergency Medicine | DX: S06.5XAA Traumatic subdural hemorrhage with loss of consciousness status unknown, initial encounter (principal); S42.201B Unspecified fracture of upper end of right humerus, initial encounter for open fracture; S72.001A Fracture of unspecified part of neck of right femur, initial encounter for closed fracture | CPT/HCPCS: A0425; A0427 ==

== ENCOUNTER 2024-06-01 16:53 | Outpatient (CLI) | payer MEDICARE, BC, SELFPAY | END 2024-06-01 16:54 | disposition home or self-care (01) | LOC: AMB 06-10 07:17 | PROVIDERS: PCP Family Medicine; Visit Provider Emergency Medicine | DX: M79.621 Pain in right upper arm (principal) | CPT/HCPCS: A0425; A0427 ==

== ENCOUNTER 2024-06-01 17:16 | Emergency (ER) | payer MEDICARE, BC, SELFPAY ==
[2024-06-01 17:22] VITALS: BP 126/80; PULSE 79; RESP 16; TEMP 36.7; O2SAT 99; BMI 22.8
--- NOTE | 2024-06-01 19:47 | CRLHL7_ITS ---
For Patients: As a result of the Century Cures Act, medical imaging exams and procedure reports are released immediately into your electronic medical record. You may view this report before your referring provider. If you have questions, please contact your health care provider. Indication: Pain, surgery for fracture January. Technique: Right shoulder 3 views. Comparison: 02/12/2024. Findings: Bones: Compared to prior examinations, similarly aligned reverse right shoulder arthroplasty. Compared to 02/12/2024, new plate and screw hardware in the right humeral shaft, which appears fractured (best seen on scapular Y-view) with mild angulation of the bone at this site as well. Wispy ossification adjacent to the site suggestive of healing changes. Soft tissues: Unremarkable. Impression: Similar alignment of previously demonstrated reverse right shoulder arthroplasty. New plate and screw hardware of the right humeral shaft, which appears fractured with mild angulation of the bone at this site as well. Dictated by Soto Jeffers MD @ 06/01/2024 9:11:41 PM (Electronically Signed)
--- NOTE | 2024-06-01 20:03 | ED_ITS ---
HPI - General Adult General Date Seen: 06/01/24 Chief complaint: Extremity Pain/Injury, Upper Stated complaint: RT arm pain Time Seen by Provider: 06/01/24 19:35 History of Present Illness HPI narrative: Patient is an 88-year-old woman who comes in by EMS. She had surgery on a proximal humerus fracture, periprosthetic, back in January. She had a small subdural at that time and also had a hip fracture. She is at home, lives with her in an apartment, not taking any chronic pain medications that she is aware of. She was working with physical therapy, she says she has not had great range of motion in the shoulder but has not been painful until the past couple of days. It became painful enough today that she was not able to function at home. She is requiring significant assistance to transfer from wheelchair to bed and her is not able to provide that. She denies any fevers or systemic complaints. She has not had any repeat trauma. She was given fentanyl by medics. She notes that if she does not move the shoulder, she does not have any pain. Pain becomes severe with any attempt to move the shoulder joint. It also hurts in the shoulder when she ranges her elbow. Related Data Home Medications ?Medication ?Instructions ?Recorded ?Confirmed atorvastatin 10 mg tablet 10 mg PO DAILY 06/29/23 06/01/24 multivitamin (Multiple Vitamins 1 tab PO QDAY 06/29/23 06/01/24 tablet) warfarin 2 mg tablet 2 mg PO DAILY 06/29/23 06/01/24 amlodipine 5 mg tablet 5 mg PO DAILY 06/01/24 06/01/24 calcium 500 mg (as 1 tab PO BID 06/01/24 06/01/24 carbonate)-vitamin D3 5 mcg (200 unit) tablet (Oyster Shell Calcium-Vitamin D3) losartan 100 mg tablet 100 mg PO DAILY 06/01/24 06/01/24 Allergies Allergy/AdvReac Type Severity Reaction Status Date / Time adhesive Allergy Mild Verified 06/01/24 17:29 Penicillins AdvReac nausea and Verified 06/01/24 17:29 vomiting Sulfa (Sulfonamide AdvReac Nausea Verified 06/01/24 17:29 Antibiotics) Review of Systems Status of ROS: Reports: 6 or more systems reviewed and unremarkable except as noted in History and below [facility] Medical History Rotator cuff tear arthropathy ?M75.100 - Unspecified rotator cuff tear or rupture of unspecified shoulder, not specified as traumatic (ICD-10) ?M12.819 - Other specific arthropathies, not elsewhere classified, unspecified shoulder (ICD-10) Right shoulder pain ?M25.511 - Pain in right shoulder (ICD-10) MRSA (methicillin resistant Staphylococcus aureus) (06/22/06) ?A49.02 - Methicillin resistant Staphylococcus aureus infection, unspecified site (ICD-10) Hypokalemia ?E87.6 - Hypokalemia (ICD-10) Hip strain ?S76.019A - Strain of muscle, fascia and tendon of unspecified hip, initial encounter (ICD-10) Hemarthrosis of shoulder region ?M25.019 - Hemarthrosis, unspecified shoulder (ICD-10) Hemarthrosis of right knee ?M25.061 - Hemarthrosis, right knee (ICD-10) Fracture of hip ?S72.009A - Fracture of unspecified part of neck of unspecified femur, initial encounter for closed fracture (ICD-10) Deep vein thrombosis, lower left extremity (2005) ?I82.402 - Acute embolism and thrombosis of unspecified deep veins of left lower extremity (ICD-10) Bilateral pulmonary embolism (2005) ?I26.99 - Other pulmonary embolism without acute cor pulmonale (ICD-10) Colon cancer ?C18.9 - Malignant neoplasm of colon, unspecified (ICD-10) Surgical History 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) ?Z96.642 - Presence of left artificial hip joint (ICD-10) H/O partial resection of colon (01/05/06) ?Z90.49 - Acquired absence of other specified parts of digestive tract (ICD- 10) Status post fine needle aspiration (04/04/12) ?Z98.890 - Other specified postprocedural states (ICD-10) History of phacoemulsification of cataract of right eye with intraocular lens implantation (07/24/14) ?Z98.41 - Cataract extraction status, right eye (ICD-10) ?Z96.1 - Presence of intraocular lens (ICD-10) History of phacoemulsification of cataract of left eye with intraocular lens implantation (08/21/14) ?Z98.42 - Cataract extraction status, left eye (ICD-10) ?Z96.1 - Presence of intraocular lens (ICD-10) History of ventral hernia repair (05/04/06) ?Z98.890 - Other specified postprocedural states (ICD-10) ?Z87.19 - Personal history of other diseases of the digestive system (ICD-10) History of colostomy (1999) 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 She is comfortable, resting in bed. Head: Normocephalic, atraumatic. Eyes: Sclera clear. Pupils equal and reactive. ENT: Mucous membranes moist. Neck: Supple without adenopathy. Heart: Regular rate and rhythm without murmur. Lungs: Clear. No increased work of breathing, crackles or wheezes. Abdomen: Soft, nontender to palpation. Extremities: Examination of the right upper extremity shows the upper arm appears somewhat edematous, though it is firm to palpation, there is no significant erythema. There is a little bit of tenderness over the mid arm where there is a little bit of faint erythema. There is no warmth. No fluctuance. Distal CMS is intact. Range of motion of the elbow is full although it causes some pain in the shoulder. Range of motion of the shoulder is limited by pain as well as postsurgical changes. Neurologic: Alert, conversant. Speech fluent, face symmetric. Moves all extremities equally. Skin: Warm, dry well perfused. Affect: Normal. Const: Vital Signs, click to edit/add: Vital Signs - 24 hr 06/01/24 17:22 Temperature 98.1 F Pulse Rate [Pulse Oximeter] 79 Respiratory Rate 16 Blood Pressure [Le ft Upper Arm] 126/80 Pulse Oximetry 99 Oxygen Delivery Me thod Room Air Course Course ED Course: She isn't sure whether not the arm is more swollen than usual, she says that the physical therapist thought it was but she is not sure. She is afebrile and nontoxic here. I do not see an obvious effusion of the shoulder joint, and she does not have significant tenderness of the joint itself. Will get x-rays and see what the state of her shoulder joint and hardware is. Labs ordered to evaluate for markers of infection all, will check an INR. I reviewed her x-rays with Dr. Polanco, on-call for Orthopedics. 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 There is no dislocation. No significant effusion. Labs are notable for an INR of 1.34, normal white blood cell count without significant left shift. Metabolic panel is unremarkable. Case reviewed with [facility] ED physician, Dr. Polanco feels she will need a specialist, orthopedics on-call at [facility] felt this would require a shoulder specialist. Patient will be transferred to the [facility] ER for admission based on her inability to manage at home at this time. Vital Signs Vital signs: Initial Vital Signs Temperature 98.1 F 06/01/24 17:22 Temperature Source Temporal Artery Scan 06/01/24 17:22 Pulse Rate 79 06/01/24 17:22 Respiratory Rate 16 06/01/24 17:22 Blood Pressure 126/80 06/01/24 17:22 Blood Pressure Mean 95 06/01/24 17:22 Blood Pressure Position Sitting 06/01/24 17:22 Pulse Oximetry 99 06/01/24 17:22 Oxygen Delivery Method Room Air 06/01/24 17:22 Vital Signs Temperature 98.1 F 06/01/24 17:22 Pulse Rate 79 06/01/24 17:22 Respiratory Rate 16 06/01/24 17:22 Blood Pressure 126/80 06/01/24 17:22 Pulse Oximetry 99 06/01/24 17:22 Oxygen Delivery Method Room Air 06/01/24 17:22 Temperature 98.1 F 06/01/24 17:22 Pulse Rate 79 06/01/24 17:22 Respiratory Rate 16 06/01/24 17:22 Blood Pressure 126/80 06/01/24 17:22 Pulse Oximetry 99 06/01/24 17:22 Oxygen Delivery Method Room Air 06/01/24 17:22 Medical Decision Making Lab Data Labs: Lab Results 06/01/24 Range/Units 20:04 WBC 8.84 (4.50-11.00) K/uL RBC 3.75 L (4.00-5.20) m/uL Hgb 11.7 L (12.0-16.0) gm/dL Hct 35.1 (33.0-51.0) % MCV 94 (80-100) fL MCH 31 (26-34) pg MCHC 33 (32-36) gm/dL RDW Coeff of Corrie 13.3 (11.5-15.5) % Plt Count 247 (140-440) K/uL Neut % (Auto) 69.0 (42.0-72.0) % Lymph % (Auto) 19.3 L (20-44) % [place] % (Auto) 10.0 (0.0-11.0) % Eos % (Auto) 1.1 (0.0-7.0) % Baso % (Auto) 0.5 (0.0-3.0) % Neut # (Auto) 6.10 (1.7-7.0) K/uL Lymph # (Auto) 1.70 (0.90-2.90) K/uL [place] # (Auto) 0.90 (0.00-0.90) K/UL Eos # (Auto) 0.10 (0.00-0.50) K/uL Baso # (Auto) 0.04 (0.00-0.30) K/uL Abs Immat Gran (auto) 0.01 (0.00-0.30) K/uL Imm/Tot Granulo (auto) 0.1 % INR 1.34 H (0.91-1.10) Sodium 138 (135-149) mmol/L Potassium 3.5 L (3.6-5.1) mmol/L Chloride 106 (96-114) mmol/L Carbon Dioxide 21 (20-32) mmol/L Anion Gap 11 (7-15) mEq/L BUN 29 (7-30) mg/dL Creatinine 0.9 (0.5-1.5) mg/dL Estimated Creat Clear 39.23 Estimated GFR 61 ml/min Glucose 109 (60-115) mg/dL Calcium 10.0 (8.4-10.6) mg/dL C-Reactive Protein 3.9 H (0.5-1.0) mg/dL Imaging Data Right shoulder x-ray: Attestation: I have reviewed the pertinent imaging results. Radiologist's impression: [place] [address] Diagnostic Imaging Report Patient: Tracy Lopez MR#: [id number] : 1935 Acct:[id number] Loc: ED Service Date: 06/01/[address]: Ordering Physician: Xenia Pedro M.D. Date of Service: 06/01/24 Procedure(s): XR shoulder RT min 2V Accession Number(s): [id number] cc: Xenia Pedro M.D.; Geri Clancy D.O.~ For Patients: As a result of the Cures Act, medical imaging exams and procedure reports are released immediately into your electronic medical record. You may view this report before your referring provider. If you have questions, please contact your health care provider. Indication: Pain, surgery for fracture January. Technique: Right shoulder 3 views. Comparison: 02/12/2024. Findings: Bones: Compared to prior examinations, similarly aligned reverse right shoulder arthroplasty. Compared to 02/12/2024, new plate and screw hardware in the right humeral shaft, which appears fractured (best seen on scapular Y-view) with mild angulation of the bone at this site as well. Wispy ossification adjacent to the site suggestive of healing changes. Soft tissues: Unremarkable. Impression: Similar alignment of previously demonstrated reverse right shoulder arthroplasty. New plate and screw hardware of the right humeral shaft, which appears fractured with mild angulation of the bone at this site as well. Dictated by Soto Jeffers MD @ 06/01/2024 9:11:41 PM Discharge Plan Discharge Prescriptions: No Action warfarin 2 mg tablet 2 mg PO DAILY atorvastatin 10 mg tablet 10 mg PO DAILY multivitamin [Multiple Vitamins] Tablet 1 tab PO QDAY amlodipine 5 mg tablet 5 mg PO DAILY losartan 100 mg tablet 100 mg PO DAILY calcium carbonate-vitamin D3 [Oyster Shell Calcium-Vit D3] 500 mg-5 mcg (200 unit) tablet 1 tab PO BID Follow Up/Referrals: Geri Clancy DO [Primary Care Provider] -
--- OUTSIDE RECORDS SUMMARY | 2024-06-01 20:05 | XMS_ITS | Encounter Summary ---
Author Organization [facility] Address [address] [place] [address] Phone Care Team Providers Care Skimmer Name Role Phone Geri Clancy Primary Care Provider [phone] Encounter Details Date Type Department Care Team (Late st Contact Info) Description 05/16/2024 11:00 AM [facility] [address] [address] Elizabeth Arechiga MD [address] [id number] Closed displaced segmental fracture of shaft of right humerus with routine healing, subsequent encounter (Primary Dx) Discharge Disposition: Discharged to home or self care Social History Tobacco Use Types Packs/Day Years Used Date Smoking Tobacco: Never Assessed Humiliation, Afraid, Rape, and Kick questionnair e Answer Date Recorded Within the last year, have y ou been afraid of your partner or ex-partner? No 02/29/2024 Within the last year, have y ou been humiliated or emotionally abused in other ways by your partner or ex-partner? No Within the last year, have y ou been kicked, hit, slapped, or otherwise physically hurt by your partner or ex-partner? No 02/29/2024 Within the last year, have y ou been raped or forced to have any kind of sexual activity by your partner or ex-partner? No 02/29/2024 Overall Financial Resource Strain (CARDIA) Answe r Date Recorded How hard is it for you to pa y for the very basics like food, housing, medical care, and heating? Not hard at all 02/29/2024 Hunger Vital Sign Answer Date Recorded Within the past 12 months, y ou worried that your food would run out before you got the money to buy more. Never true 02/29/20 24 Within the past 12 months, t he food you bought just didn't last and you didn't have money to get more. Never true 02/29/2024 PRAPARE - Transportation Answer Date Re corded In the past 12 months, has l ack of transportation kept you from medical appointments or from getting medications? No 06/2023 In the past 12 months, has l ack of transportation kept you from meetings, work, or from getting things needed for daily living? No 02/29/2024 Housing Stability Answer Date Recorded What is your housing situation today? 3 - I have housing 02/29/2024 Comments Unknown Sex and Gender Information Value Date Recorded Sex Assigned at Not on file Legal Sex Female 9:55 AM [employer] Gender Identity Not on file Sexual Orientation Not on file documented as of this encounter Progress Notes * Elizabeth Arechiga MD - 05/16/2024 11:00 AM CST Attempted to call patient for a visit. No answer. Left vm to call back to our nurse phone. Will need to re-sched and attempt to obtain xrays. Elizabeth Arechiga MD [employer] documented in this encounter Plan of Treatment Not on file documented as of this encounter Visit Diagnoses Diagnosis Closed displaced segmental fracture of shaft of right humerus with routine healing, subsequent encounter- Primary documented in this encounter Care Teams Skimmer Relationship Specialty Start Date End Date Geri Clancy DO [address] [place] [address] PCP - General 02/14/24 documented as of this encounter
--- OUTSIDE RECORDS SUMMARY | 2024-06-01 20:05 | XMS_ITS | Clinical Summary ---
Author Organization [employer] Address [address] [place] [id number] Phone Care Team Providers Care Tack Coverer Name Role Phone Geri Clancy DO Primary Care Provider [phone] Source Comments [employer] is fully rolled out on [email or web address]. Last update 11/01/08.[facility] Allergies Active Allergy Reactions Criticality Noted Date Comments Adhesive Tape Unknown 02/12/2024 Penicillins Nausea/Vomiting 02/12/2024 Sulfa Antibiotics Nausea/Vomiting 02/12/2024 Medications * Be aware that medications may not be up to date as of this document. Always verify current medications with patient. calcium (OS-KACI) 500 mg oral TABSIndication s:Bone health/healing Take 1 tablet (500 mg) by mouth twice daily. 02/19/20 24 Active CHOLEcalcifero l (VITAMIN D3) 1000 UNIT oral TABSIndication s:bone health/healing Take 1 tablet (1,000 UNITS) by mouth daily. 02/20/20 24 Active multivitamin + minerals (CEROVITE SENIOR) oralIndication s:nutritional support Take 1 tablet by mouth daily with lunch. 02/20/20 24 Active amLODIPine (NORVASC) 5 mg oral TABSIndication s:Hypertension Take 1 tablet (5 mg) by mouth daily. 03/01/20 24 Active acetaminophen (TYLENOL) 325 mg oral tabletIndicati ons:Pain Take 3 tablets (975 mg) by mouth 3 times daily. Indications: PainCan transition to PRN as pain improves 03/15/20 Active atorvastatin (LIPITOR) 10 mg oral tabletIndicati ons:Hyperlipid emia Take 1 tablet (10 mg) by mouth at bedtime. Indications: High Amount of Fats in the Blood 03/15/20 Active hydrALAZINE (APRESOLINE) 10 mg oral TABSIndication s:Hypertension Take 1 tablet (10 mg) by mouth every 6 hours as needed (SBP >160). Indications: High Blood Pressure 03/15/20 Active losartan (COZAAR) 100 mg oral tabletIndicati ons:Hypertensi on Take 1 tablet (100 mg) by mouth daily. Indications: High Blood Pressure 03/15/20 Active melatonin 3 mg oral tabletIndicati ons:Insomnia Take 1 tablet (3 mg) by mouth at bedtime. Indications: Trouble Sleeping 03/15/20 Active polyethylene glycol 3350 (MIRALAX;GLYCO LAX) 17 g oral packetIndicati ons:Constipati on Take 17 g by mouth daily. Indications: ConstipationTake 1 capful to 17 gm sarita mixed with full glass of water every day as directed. 03/15/20 Active sennosides (SENOKOT) 17.2 mg oral TABSIndication s:Constipation Take 1 tablet (17.2 mg) by mouth twice daily as needed (constipation). Indications: Constipation 03/15/20 Active Active Problems Problem Noted Date Diagnosed Date Mild neurocognitive disorder 03/15/2024 Multiple closed fractures of pelvis with stable disruption of pelvic ring, initial encounter ([facility]) 02/21/2024 Vitamin D insufficiency 02/14/2024 SDH (subdural hematoma) ([facility]) 02/13/2024 Closed fracture of neck of r ight femur, initial encounter ([facility]) 02/13/2024 Closed displaced segmental f racture of shaft of right humerus, initial encounter 02/13/2024 Encounters Date Type Department Care Team Description 05/17/2024 [facility]phone [facility] [address] [place] [id number] Abril Dotson RN 05/16/2024 11:[address] [facility] [address] [place] [id number] Elizabeth Arechiga MD Closed displaced segmental fracture of shaft of right humerus with routine healing, subsequent encounter (Primary Dx) Discharge Disposition: Discharged to home or self care 03/28/2024 10:00 AM CDT [facility] [address] [place] [phone] Elizabeth Arechiga MD Closed displaced segmental fracture of shaft of right humerus, initial encounter (Primary Dx) Discharge Disposition: Discharged to home or self care 03/28/2024 9:45 AM CDT [facility] [address] [place] [phone] Xiang Davidson MD Closed fracture of neck of right femur, initial encounter (CMS/[facility]) (Primary Dx); Multiple closed fractures of pelvis with stable disruption of pelvic ring, initial encounter ([facility]); History of bilateral hip hemiarthroplasty; Peroneal nerve palsy, right Discharge Disposition: Discharged to home or self care 03/28/2024 8:55 AM CDT - 03/28/2024 11:59 PM CDT [facility] Encounter [facility] [address] [address] Brittni Perrin PA-C Discharge Disposition: Discharged to home or self care 03/28/2024 8:54 AM CDT - 03/28/2024 11:59 PM CDT Hospital Encounter [facility] [address] [address] Brittni Perrin PA-C Discharge Disposition: Discharged to home or self care 03/28/2024 8:53 AM CDT - 03/28/2024 11:59 PM CDT Hospital Encounter [facility] [address] [address] Brittni Perrin PA-C Discharge Disposition: Discharged to home or self care 03/28/2024 Travel 02/29/2024 12:26 PM CDT - 03/15/2024 11:36 AM CDT Hospital Encounter [facility] [address] [facility] [address] [place] [address] Ramon Torres DO Puderbaugh, Matthew, DO Tzivion, Dionicio, MD Multiple closed fractures of pelvis with stable disruption of pelvic ring, initial encounter ([facility]) Discharge Disposition: Discharged/transd to SNF with Medicare certification from Last 3 Months Immunizations Name Administration Dates Next Due COVID-19 Vaccine Monovalent (PFIZER-COMIRNATY) 12 Years and Older 02/26/2024 Influenza Vaccine - High-Dos e, Trivalent, Preservative Free 03/13/2024 Family History Medical History Relation Name Comments Hypertension Mother Cancer Colon Paternal Grandfather Cancer Breast Sister 1 Relation Name Status Comments Mother Paternal Grandfather Sister 1 Sister 2 Alive Social History Tobacco Use Types Packs/Day Years [...] on file 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 Gender Identity Not on file Sexual Orientation Not on file Last Filed Vital Signs Vital Sign Reading Time Taken Comments Blood Pressure 148/64 03/15/2024 7:28 AM CDT Pulse 76 03/15/2024 7:28 AM CDT Temperature 36.4 C (97.6 F) 03/15/2024 7:28 AM CDT Respiratory Rate 18 03/15/2024 7:28 AM CDT Oxygen Saturation 94% 03/15/2024 7:28 AM CDT Inhaled Oxygen Concentration - - Weight 68.8 kg (151 lb 10.8 oz) 024 11:17 AM CDT Height 172.7 cm (5' 8) 02/29/2024 1:00 PM CDT Body Mass Index 23.06 02/29/2024 1:00 PM CDT Plan of Treatment Health Maintenance Due Date Last Done Comments Dental Oral Exam 1935 Dental Prophylaxis 1935 Dental X-Ray: Bitewings 1935 Periodontal Maintenance 1949 PREVENTATIVE VISIT 1953 HEALTH MAINTENANCE PROTOCOL 1954 Imm: Pneumonia greater than 65 years (2 of 2 - PCV) 01/24/2006 01/24/2005 Imm: Zoster (2 of 2) 01/14/2020 11/19/2019 Medicare Annual Wellness 06/24/2024 024, 03/22/2022, 03/09/2021, Additional history exists Imm: DTaP/Tdap (4 - Td or Tdap) 07/04/2033 07/04/2023, 04/17/2012, 01/14/2003, Additional history exists Osteoporosis Screening (Dexa Scan) Completed 03/12/2021, 03/12/2021, 01/25/2019, Additional history exists Imm: COVID-19 Completed 02/26/2024, 01/29, 03/24/2022, Additional history exists Imm: Flu Completed 03/13/2024, 02/27, 03/07/2019, Additional history exists Imm: HPV Aged Out No longer eligi ble based on patient's age to complete this topic Imm: HepA Aged Out No longer eligi ble based on patient's age to complete this topic Imm: HepB Aged Out No longer eligi ble based on patient's age to complete this topic Imm: Hib Aged Out No longer eligi ble based on patient's age to complete this topic Imm: Meningitis Aged Out No longer el igible based on patient's age to complete this topic Medical Devices Implanted Type Area Fisherman Helper Device Identifier Shelf Expiration Date Model / Serial / Lot *Bone Cement, Simplex P Full Dose [id number] Implanted:Qty: 1 on 02/13/2024 by Xiang Davidson MD at [facility] Cement Right: Femur [employer] 09/26/2025 [id number] / / [id number] *Bone Cement, Simplex P Full Dose [id number] Implanted:Qty: 1 on 02/13/2024 by Xiang Davidson MD at [facility] Cement Right: Femur [employer] 09/26/2025 [id number] / / [id number] Tigertape Cerclage W/O Needl White/Black Implanted:Qty: 1 on 02/17/2024 by Elizabeth Arechiga MD at [facility] Right: Humerus [employer] 03/29/2028 [id number] / / [id number] Fibertape Crclg Straight Passer Med White Dispos Implanted:Qty: 1 on 02/17/2024 by Elizabeth Arechiga MD at [facility] Right: Humerus [employer] AR-[id number] / / Head Unipolar 51mm Implanted:Qty: 1 on 02/13/2024 by Xiang Davidson MD at [facility] Right: Femur [employer] 06/28/2031 [id number] / / [id number] Femoral Stem Synergy Size 15 Implanted:Qty: 1 on 02/13/2024 by Xiang Davidson MD at [facility] Right: Femur [employer] 02/15/2032 [id number] / / [id number] Sleeve Tapered +0mm Implanted:Qty: 1 on 02/13/2024 by Xiang Davidson MD at [facility] Right: Femur [employer] 09/06/2033 [id number] / / [id number] Centralizer Hip Distal Size 12 Implanted:Qty: 1 on 02/13/2024 by Xiang Davidson MD at [facility] Right: Femur [employer] 10/10/2033 [id number] / / [id number] 30mm Cancellous Locking Screw, Fully Threaded, 4mm Implanted:Qty: 1 on 02/17/2024 by Elizabeth Arechiga MD at [facility] Right: Humerus [employer] [id number] / / Description:Arthrex Proximal Humeral Plating System 30mm Cortical Bone Screw, 3.5mm Implanted:Qty: 1 on 02/17/2024 by Elizabeth Arechiga MD at [facility] Right: Humerus [employer] [id number] / / Description:Arthrex Proximal Humeral Plating System 26mm Locking Screw, 3.5mm Implanted:Qty: 3 on 02/17/2024 by Elizabeth Arechiga MD at [facility] Right: Humerus [employer] [id number] / / Description:Arthrex Proximal Humeral Plating System Alpha Plate, Right Implanted:Qty: 1 on 02/17/2024 by Elizabeth Arechiga MD at [facility] Right: Humerus [employer] [id number] / / Description:Arthrex Proximal Humeral Plating System Fibertape Cerclage Suture Implanted:Qty: 1 on 02/17/2024 by Elizabeth Arechiga MD at [facility] Right: Humerus [employer] 03/29/2028 AR-[id number] / / [id number] Fibertape Cerclage Suture Implanted:Qty: 2 on 02/17/2024 by Elizabeth Arechiga MD at [facility] Right: Humerus [employer] 07/27/2028 AR-7268 / / [id number] 22mm Cancellous Locking Screw, Fully Threaded, 4mm Implanted:Qty: 2 on 02/17/2024 by Elizabeth Arechiga MD at [facility] Right: Humerus [employer] [id number] / / Description:Arthrex Proximal Humerus Plating System Procedures Procedure Name Priority Date/Time Associated Diagnosis Comments XR PELVIS 3 V AP &INLET/OUTLET Routine 03/28/2024 9:40 AM CDT Multiple closed fractures of pelvis with stable disruption of pelvic ring, initial encounter (CMS/[facility]) XR HUMERUS RIGHT 2 V AP + LAT* Routine 03/28/2024 9:38 AM CDT Closed displaced segmental fracture of shaft of right humerus, initial encounter XR HIP RIGHT 2 V AP + LAT* Routine 03/28/2024 9:38 AM CDT PROTHROMBIN (PT) & INR Routine 03/15/2024 7:06 AM CDT PROTHROMBIN (PT) & INR Routine 03/13/2024 7:44 AM CDT TC LAB BLOOD DRAW BY VENIPUNCTURE Routine 03/13/2024 7:44 AM CDT PANEL BASIC METABOLIC (BMP) Routine 03/12/2024 9:35 AM CDT TC LAB BLOOD DRAW BY VENIPUNCTURE Routine 03/12/2024 9:35 AM CDT PROTHROMBIN (PT) & INR Routine 03/11/2024 6:55 AM CDT PC LAB CBC/PLT Routine 03/11/2024 6:55 AM CDT PC LAB CBC/PLT Routine 03/10/2024 7:57 AM CDT MR SPINE LUMBAR W/O CONTRAST Routine 03/09/2024 11:57 PM CDT XR HIP RIGHT 2 V AP + LAT* Today 03/09/2024 12:45 PM CDT PROTHROMBIN (PT) & INR Routine 03/09/2024 8:21 AM CDT TC LAB BLOOD DRAW BY VENIPUNCTURE Routine 03/09/2024 8:21 AM CDT PC LAB CBC/PLT Routine 03/08/2024 11:08 AM CDT PROTHROMBIN (PT) & INR Routine 03/08/2024 6:08 AM CDT PROTHROMBIN (PT) & INR Routine 03/07/2024 7:08 AM CDT PC LAB CBC/PLT Routine 03/07/2024 7:08 AM CDT XR TIB FIB RIGHT 2 V AP + LAT* Today 03/06/2024 11:40 AM CDT XR ANKLE RIGHT 3 V AP/OBL/LAT* Today 03/06/2024 11:39 AM CDT XR KNEE RIGHT 2 V AP/LAT Today 03/06/2024 11:38 AM CDT PROTHROMBIN (PT) & INR Routine 03/06/2024 5:47 AM CDT TC LAB BLOOD DRAW BY VENIPUNCTURE Routine 03/06/2024 5:47 AM CDT PROTHROMBIN (PT) & INR Routine 03/05/2024 7:44 AM CDT PANEL BASIC METABOLIC (BMP) Routine 03/05/2024 7:44 AM CDT TC LAB BLOOD DRAW BY VENIPUNCTURE Routine 03/05/2024 7:[address] HEAD NO IV CONTRAST STAT 03/04/2024 11:37 AM CDT PROTHROMBIN (PT) & INR Routine 03/04/2024 8:17 AM CDT PC LAB CBC/PLT Routine 03/04/2024 8:17 AM CDT PC HEPARIN ASSAY Timed 03/03/2024 11:5 4 AM CDT PC LAB CBC/PLT Routine 03/03/2024 6:41 AM CDT PC HEPARIN ASSAY Timed 03/03/2024 6:41 AM CDT PROTHROMBIN (PT) & INR Routine 03/03/2024 6:41 AM CDT TC LAB BLOOD DRAW BY VENIPUNCTURE Timed 03/03/2024 12:20 AM CDT TC LAB BLOOD DRAW BY VENIPUNCTURE Timed 03/02/2024 6:11 PM CDT PC HEPARIN ASSAY Timed 03/02/2024 11:[address] HEAD NO IV CONTRAST Today 03/02/2024 8:08 AM CDT PC LAB CBC/PLT Routine 03/02/2024 5:41 AM CDT PC HEPARIN ASSAY Timed 03/02/2024 5:41 AM CDT PROTHROMBIN (PT) & INR Routine 03/02/2024 5:41 AM CDT PC HEPARIN ASSAY Timed 03/01/2024 11:1 6 PM CDT PC HEPARIN ASSAY Timed 03/01/2024 5:32 PM CDT XR PELVIS INLET AND OUTLET Routine 03/01/2024 12:42 PM CDT XR HIP RIGHT 2 V AP + LAT* Routine 03/01/2024 12:35 PM CDT TC LAB BLOOD DRAW BY VENIPUNCTURE Timed 03/01/2024 11:17 AM CDT PANEL BASIC METABOLIC (BMP) Routine 03/01/2024 5:57 AM CDT PC LAB CBC/PLT Routine 03/01/2024 5:57 AM CDT PC HEPARIN ASSAY Timed 03/01/2024 5:57 AM CDT PROTHROMBIN (PT) & INR Routine 03/01/2024 5:57 AM CDT from Last 3 Months Results * XR PELVIS 3 V AP + INLET/OUTLET (03/28/2024 9:40 AM CDT) Anatomical Region Laterality Modality Pelvis Digital Radiogra phy 03/28/2024 9:56 AM CDT Impressions 03/28/2024 9:57 AM CDT Impression: No significant change in alignment. Reading Radiologist: Yaya Benjamin Narrative 03/28/2024 9:57 AM CDT Technique: XR PELVIS 3 V AP + INLET/OUTLET Indication: fx Comparison: CT from 02/12/2024 Findings: Previous bilateral bipolar hemiarthroplasties. Hardware and alignment are unchanged. Healing fractures of the right superior and inferior pubic rami, and healing right sacral alar fracture. Alignment is unchanged from prior. Procedure Note Yaya Benjamin MBBS - 03/28/2024 Technique: XR PELVIS 3 V AP + INLET/OUTLET Indication: fx Comparison: CT from 02/12/2024 Findings: Previous bilateral bipolar hemiarthroplasties. Hardware andalignment are unchanged. Healing fractures of the right superior andinferior pubic rami, and healing right sacral alar fracture. Alignment isunchanged from prior. IMPRESSION Impression: No significant change in alignment. Reading Radiologist: Yaya Benjamin us Brittni Perrin PA-C RAD XRAY Final Resu lt * XR HUMERUS RIGHT 2 V AP + LAT* (03/28/2024 9:38 AM CDT) Anatomical Region Laterality Modality Upper Arm Digital Radiogra phy 03/28/2024 9:57 AM CDT Impressions 03/28/2024 9:57 AM CDT Impression: Stable alignment. Reading Radiologist: Yaya Benjamin Narrative 03/28/2024 9:57 AM CDT Technique: XR HUMERUS RIGHT 2 V AP + LAT* Indication: s/p ORIF R humerus Comparison: 02/17/2024 Findings: Postoperative changes of right shoulder arthroplasty, and ORIF of the right humerus. Hardware and alignment are unchanged from previous. Procedure Note Yaya Benjamin MBBS - 03/28/2024 Technique: XR HUMERUS RIGHT 2 V AP + LAT* Indication: s/p ORIF R humerus Comparison: 02/17/2024 Findings: Postoperative changes of right shoulder arthroplasty, and ORIFof the right humerus. Hardware and alignment are unchanged fromprevious. IMPRESSION Impression: Stable alignment. Reading Radiologist: Yaya Benjamin Blanca Ovalles APRN, STEEL POURER RAD XRAY Ramona l Result * XR HIP RIGHT 2 V AP + LAT* (03/28/2024 9:38 AM CDT) Only the most recent of3 resultswithin the time period is included. Anatomical Region Laterality Modality Upper Leg Digital Radiogra phy 03/28/2024 9:55 AM CDT Impressions 03/28/2024 9:56 AM CDT Impression: No significant change in alignment. Reading Radiologist: Yaya Benjamin Narrative 03/28/2024 9:56 AM CDT Technique: XR HIP RIGHT 2 V AP + LAT* Indication: post op imaging. ok to perform anytime 03/01 Comparison: 03/28/2024 Findings: Stable postoperative changes of right hip bipolar hemiarthroplasty. Alignment is unchanged from prior. Deformities of the right superior and inferior pubic rami, not significantly changed. Extensive vascular calcifications. Procedure Note Yaya Benjamin MBBS - 03/28/2024 Technique: XR HIP RIGHT 2 V AP + LAT* Indication: post op imaging. ok to perform anytime 03/01 Comparison: 03/28/2024 Findings: Stable postoperative changes of right hip bipolarhemiarthroplasty. Alignment is unchanged from prior. Deformities of theright superior and inferior pubic rami, not significantly changed.Extensive vascular calcifications. IMPRESSION Impression: No significant change in alignment. Reading Radiologist: Yaya Benjamin us Brittni Perrin PA-C RAD XRAY Final Resu lt * (ABNORMAL) PROTHROMBIN (PT) & INR (03/15/2024 7:06 AM CDT) Only the most recent of12 resultswithin the time period is included. PT 27.1(H) 9.0 - 12.5 sec [facility] INR 2.4(H) 0.8 - 1.1 [facility] Comment: Warfarin Therapeutic Range: Standard Intensity: 2.0 - 3.0 High Intensity: 2.5 - 3.5 Blood 03/15/2024 7:06 AM CDT 03/15/2024 7:25 AM CDT Narrative [facility] - 03/15/2024 7:50 AM CDT Which anti-coagulants is the patient taking: COUMADIN us Ramon Torres DO LABORATORY Fin al Result [facility] [address] [address] * (ABNORMAL) CBC WITH PLATELET (03/13/2024 7:44 AM CDT) Only the most recent of13 resultswithin the time period is included. WBC 6.30 4.00 - 10.00 k/cmm [facility] RBC 3.43(L) 3.90 - 5.20 m/cmm [facility] Hgb 10.8(L) 11.5 - 15.7 g/dL [facility] Hematocrit 34.2 34.0 - 45.0 % [facility] MCV 99.7 80.0 - 100.0 fL [facility] MCH 31.5 25.0 - 32.0 pg [facility] MCHC 31.6 31.0 - 36.0 g/dL [facility] RDW 15.7(H) 11.5 - 14.5 % [facility] Plt 239 150 - 400 k/cmm [facility] MPV 11.3 6.5 - 12.5 fL [facility] Blood 03/13/2024 7:44 AM CDT 03/13/2024 7:54 AM CDT Ramon Torres DO LABORATORY Fin al Result Performing Organization Address [facility] Co de Phone Number [facility] [address] [address] * (ABNORMAL) PANEL BASIC METABOLIC (BMP) (03/12/2024 9:35 AM CDT) Only the most recent of3 resultswithin the time period is included. Sodium 142 135 - 148 mmol/L [facility] Potassium 3.9 3.5 - 5.3 mmol/L [facility] Chloride 105 92 - 108 mmol/L [facility] CO2 22 22 - 30 mmol/L [facility] AnGap 15 8 - 16 mmol/L [facility] Glucose 153(H) 70 - 100 mg/dL [facility] BUN 23 8 - 23 mg/dL [facility] Creatinine 0.62 0.50 - 1.00 mg/dL [facility] Calcium 9.4 8.8 - 10.2 mg/dL [facility] eGFR (2020 CKD-EPI) 86 >=60 ml/min/1.7 3m2 [facility] Comment: The estimated glomerular filtration rate (eGFR) was calculated using the CKD-EPI 2020 creatinine equation, which does not include race as a factor. This equation is validated in individuals 18 years of age and older, and eGFR is normalized to a body surface area of 1.73m^2. Blood 03/12/2024 9:35 AM CDT 03/12/2024 10:32 AM CDT Ramon Torres DO LABORATORY Oh stacie Result - Final Performing Organization Address City/[facility]/ZIP Co de Phone Number [facility] [address] [address] * MR SPINE LUMBAR W/O CONTRAST (03/09/2024 11:57 PM CDT) Anatomical Region Laterality Modality Lumbar Spine Magnetic Resonan ce 03/10/2024 4:08 AM CDT Impressions 03/10/2024 7:45 AM CDT Impression: 1. No acute traumatic injury to the lumbar spine. 2. Lumbar spondylosis most prominent at L4-5 and L5-S1 with moderate left neuroforaminal narrowing. Unremarkable cauda equina. I have personally reviewed the image(s) and initial interpretation, and I agree with the findings as documented by the resident/fellow. Reading Radiologist: Sybil Moon Reading Resident: Ozzy Osborne 03/10/2024 7:45 AM CDT Lumbar Spine MR without contrast Indication: Lumbar plexopathy, traumatic Lumbar radiculopathy, trauma . Comparison: CT cap dated 02/12/2024 Technique: Sagittal STIR, T1-weighted and T2-weighted and axial T2-weighted and T1-weighted images of the lumbar spine were obtained without intravenous contrast. Findings: There are 5 lumbar-type vertebrae used for the purposes of this dictation. Normal lumbar lordosis, alignment maintained along the posterior vertebral body line. The tip of the conus medullaris is at the level of the L1/L2. No areas of high-grade spinal canal narrowing or clumping of cauda equina. No abnormal cord signal at any level. Regarding the bone marrow, normal marrow signal on T1 sequencing. Lumbar spondylosis throughout the lumbar spine, most prominent L4-S1. There is mild vertebral body spurring, multilevel disc osteophyte complexes. Intervertebral disc space height loss at L2-3, L4-5 and L5-S1. Multilevel disc desiccation. The findings on a level by level basis are as follows: L2-3: No significant spinal canal stenosis. Mild right neuroforaminal narrowing. The left neuroforamen is patent. L3-4: Circumferential disc bulge and the facet arthropathy especially. No significant spinal canal stenosis. Mild bilateral neuroforaminal narrowing. L4-5: Annular fissuring. Facet arthropathy bilaterally. No significant spinal canal stenosis. Mild right, moderate left neuroforaminal narrowing. L5-S1: Disc osteophyte complex. Facet arthropathy bilaterally. No significant spinal canal stenosis. Mild right, moderate left neuroforaminal narrowing. The paraspinous tissues anteriorly are unremarkable. Paraspinal musculature fatty atrophy. Procedure Note Sybil Moon MD - 03/10/2024 Lumbar Spine MR without contrast Indication: Lumbar plexopathy, traumatic Lumbar radiculopathy, trauma . Comparison: CT cap dated 02/12/2024 Technique: Sagittal STIR, T1-weighted and T2-weighted and axialT2-weighted and T1-weighted images of the lumbar spine were obtainedwithout intravenous contrast. Findings: There are 5 lumbar-type vertebrae used for the purposes of this dictation.Normal lumbar lordosis, alignment maintained along the posterior vertebralbody line. The tip of the conus medullaris is at the level of the L1/L2.No areas of high-grade spinal canal narrowing or clumping of cauda equina.No abnormal cord signal at any level. Regarding the bone marrow, normalmarrow signal on T1 sequencing. Lumbar spondylosis throughout the lumbar spine, most prominent L4-S1.There is mild vertebral body spurring, multilevel disc osteophytecomplexes. Intervertebral disc space height loss at L2-3, L4-5 and L5-S1.Multilevel disc desiccation. The findings on a level by level basis are as follows: L2-3: No significant spinal canal stenosis. Mild right neuroforaminalnarrowing. The left neuroforamen is patent. L3-4: Circumferential disc bulge and the facet arthropathy especially. Nosignificant spinal canal stenosis. Mild bilateral neuroforaminalnarrowing. L4-5: Annular fissuring. Facet arthropathy bilaterally. No significantspinal canal stenosis. Mild right, moderate left neuroforaminalnarrowing. L5-S1: Disc osteophyte complex. Facet arthropathy bilaterally. Nosignificant spinal canal stenosis. Mild right, moderate leftneuroforaminal narrowing. The paraspinous tissues anteriorly are unremarkable. Paraspinalmusculature fatty atrophy. IMPRESSION Impression: 1. No acute traumatic injury to the lumbar spine. 2. Lumbar spondylosis most prominent at L4-5 and L5-S1 with moderate leftneuroforaminal narrowing. Unremarkable cauda equina. I have personally reviewed the image(s) and initial interpretation, and Iagree with the findings as documented by the resident/fellow. Reading Radiologist: Sybil Moon Resident: Ozzy Osborne us Aris Stoddard DO RAD MR NEURO Final Resu lt * XR TIB FIB RIGHT 2 V AP + LAT* (03/06/2024 11:40 AM CDT) Anatomical Region Laterality Modality Lower Extremity Computed Radiogr aphy 03/06/2024 11:4 2 AM CDT Impressions 03/06/2024 11:42 AM CDT Impression: No acute osseous abnormality. Reading Radiologist: French Mancera Narrative 03/06/2024 11:42 AM CDT Technique: XR TIB FIB RIGHT 2 V AP + LAT* Indication: Right tibia/fibula pain, r/o fracture at fibular/tibia Comparison: No comparison Findings: Alignment of the right knee and right ankle is within normal limits. Degenerative changes in the knee. Atherosclerotic calcification throughout. No fracture. Procedure Note French Mancera MD - 03/06/2024 Technique: XR TIB FIB RIGHT 2 V AP + LAT* Indication: Right tibia/fibula pain, r/o fracture at fibular/tibia Comparison: No comparison Findings: Alignment of the right knee and right ankle is within normallimits. Degenerative changes in the knee. Atherosclerotic calcificationthroughout. No fracture. IMPRESSION Impression: No acute osseous abnormality. Reading Radiologist: French Mancera us Ramon Torres DO RAD XRAY Fin al Result * XR ANKLE RIGHT 3 V AP/OBL/LAT* (03/06/2024 11:39 AM CDT) Anatomical Region Laterality Modality Foot Computed Radiogr aphy 03/06/2024 11:4 4 AM CDT Impressions 03/06/2024 11:44 AM CDT Impression: No acute osseous abnormality. Reading Radiologist: French Mancera Narrative 03/06/2024 11:44 AM CDT Technique: XR ANKLE RIGHT 3 V AP/OBL/LAT* Indication: Right tibia/fibula pain, r/o fracture at ankle Comparison: None Findings: Alignment of the right ankle is within normal limits. No fracture. Procedure Note French Mancera MD - 03/06/2024 Technique: XR ANKLE RIGHT 3 V AP/OBL/LAT* Indication: Right tibia/fibula pain, r/o fracture at ankle Comparison: None Findings: Alignment of the right ankle is within normal limits. Nofracture. IMPRESSION Impression: No acute osseous abnormality. Reading Radiologist: French Mancera Ramon Torres DO RAD XRAY Fin al Result * XR KNEE RIGHT 2 V AP/LAT (03/06/2024 11:38 AM CDT) Anatomical Region Laterality Modality Lower Extremity Computed Radiogr aphy 03/06/2024 11:4 7 AM CDT Impressions 03/06/2024 11:47 AM CDT Impression: No acute osseous abnormality. Degenerative osteoarthritis. Reading Radiologist: French Mancera Narrative 03/06/2024 11:47 AM CDT Technique: XR KNEE RIGHT 2 V AP/LAT Indication: Right tibia/fibula pain, r/o fracture at knee Comparison: No comparison Findings: Marked lateral compartment joint space narrowing and osteophyte formation throughout. Irregularity of patellar articular surface. Atherosclerotic calcification. Procedure Note French Mancera MD - 03/06/2024 Technique: XR KNEE RIGHT 2 V AP/LAT Indication: Right tibia/fibula pain, r/o fracture at knee Comparison: No comparison Findings: Marked lateral compartment joint space narrowing and osteophyteformation throughout. Irregularity of patellar articular surface.Atherosclerotic calcification. IMPRESSION Impression: No acute osseous abnormality. Degenerative osteoarthritis. Reading Radiologist: French Mancera Authorrashmi Provider Result Type Result Stat Ramon Torres DO RAD XRAY Fin al Result * CT HEAD NO IV CONTRAST (03/04/2024 11:37 AM CDT) Only the most recent of2 resultswithin the time period is included. Anatomical Region Laterality Modality Skull Computed Tomogra phy 03/04/2024 11:3 2 AM CDT Impressions 03/04/2024 1:35 PM CDT Impression: 1. No new intracranial pathology. 2. 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 3. Advanced leukoaraiosis. I have personally reviewed the image(s) and initial interpretation, and I agree with the findings as documented by the resident/fellow. Reading Radiologist: Sybil Moon Reading Resident: Machelle Deras Narrative 03/04/2024 1:35 PM CDT Indication: Neuro deficit, acute, stroke suspected worsened RLE weakness, f/u ICH . Comparison: CT head 03/02/2024 Technique: Axial thin section CT images through the brain were obtained from the base of the skull through the vertex without intravenous contrast and reviewed in brain, bone and subdural windows. Dose Total DLP = 1269.3 mGy.cm. Findings: Stable hypodense collection overlying the right posterior cerebral convexity measuring 9 mm, previously 9 mm. Stable thin subdural along the posterior falx/right tentorial leaflet. No new extra-axial collection or intracranial hemorrhage. Moderate diffuse parenchymal volume loss and extensive patchy white matter hypoattenuation, nonspecific but likely sequelae of chronic small vessel ischemic disease. No acute loss of kee-white differentiation. The ventricles and sulci appear appropriate for age. . The bony calvarium and the bones of the skull base appear normal. The visualized portions of the paranasal sinuses and the right mastoid air cells are clear. Trace effusion in the left mastoid air cells. Bilateral pseudophakia. Procedure Note Sybil Moon MD - 03/04/2024 Indication: Neuro deficit, acute, stroke suspected worsened RLE weakness,f/u ICH . Comparison: CT head 03/02/2024 Technique: Axial thin section CT images through the brain were obtainedfrom the base of the skull through the vertex without intravenous contrastand reviewed in brain, bone and subdural windows. Dose Total DLP = 1269.3 mGy.cm. Findings: Stable hypodense collection overlying the right posteriorcerebral convexity measuring 9 mm, previously 9 mm. Stable thin subduralalong the posterior falx/right tentorial leaflet. No new extra-axialcollection or intracranial hemorrhage. Moderate diffuse parenchymal volumeloss and extensive patchy white matter hypoattenuation, nonspecific butlikely sequelae of chronic small vessel ischemic disease. No acute loss ofgray-white differentiation. The ventricles and sulci appear appropriatefor age. . The bony calvarium and the bones of the skull base appear normal. Thevisualized portions of the paranasal sinuses and the right mastoid aircells are clear. Trace effusion in the left mastoid air cells. Bilateralpseudophakia. IMPRESSION Impression: 1. No new intracranial pathology. 2. Stable thin subdural along the posterior falx and right tentorialleaflet, and stable subdural hygroma along the right parieto-occipitalconvexity. 3. Advanced leukoaraiosis. I have personally reviewed the image(s) and initial interpretation, and Iagree with the findings as documented by the resident/fellow. Reading Radiologist: Sybil Moon Reading Resident: Machelle Deras Dionicio Means MD RAD CT NEURO Final Result * (ABNORMAL) ANTI XA HEPARIN UNFRACTIONATED (03/03/2024 11:54 AM CDT) Only the most recent of10 resultswithin the time period is included. Anti XA Hep U <0.04(L) 0.30 - 0.70 IU/mL [facility] Blood 03/03/2024 11:5 4 AM CDT 03/03/2024 12:11 PM CDT us Ramon Torres DO LABORATORY Fin al Result [facility] [address] [address] * XR PELVIS INLET AND OUTLET (03/01/2024 12:42 PM CDT) Anatomical Region Laterality Modality Pelvis Computed Radiogr aphy 03/01/2024 12:5 5 PM CDT Impressions 03/01/2024 1:01 PM CDT Impression: Stable hardware and postoperative alignment. Reading Radiologist: Sybil Moon Narrative 03/01/2024 1:01 PM CDT Technique: XR HIP RIGHT 2 V AP + LAT*, XR PELVIS INLET AND OUTLET Indication: post op imaging Comparison: Pelvic radiograph dated 02/14/2024 Findings: Postsurgical changes of bilateral total hip arthroplasty. Stable alignment. Healed fracture of the right superior ramus. No new acute osseous abnormality. Nonobstructive bowel gas pattern. 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 Stablealignment. Healed fracture of the right superior ramus. No new acuteosseous abnormality. Nonobstructive bowel gas pattern. IMPRESSION Impression: Stable hardware and postoperative alignment. Reading Radiologist: Sybil Moon us Brittni Perrin PA-C RAD XRAY Final Resu lt from Last 3 Months Insurance MEDICARE [facility] Advance Directives For more information, please contact: [phone] Documents on File Type Date Recorded Patient Breakfast Attendant Expl anation POLST 02/25/2024 12:24 PM ePOLST * DNR (Latest Code Status on File) Date Activated Date Inactivated Comments 03/15/2024 7:40 AM Question Answer Comments Does the Patient have prefer ences regarding life sustaining measures (these options only apply when the patient has a pulse): Yes Patient will accept intubation for respiratory d eterioration: No Patient will accept BiPAP for respiratory deteri oration: Unaddressed Patient will accept vasopressors for hypotension : Unaddressed Patient will accept cardioversion for unstable r hythm: Unaddressed Discussed Code Status With Whom? Patient * DNR Date Activated Date Inactivated Comments 02/29/2024 12:11 PM 03/15/2024 7:40 AM Question Answer Comments Does the Patient have prefer ences regarding life sustaining measures (these options only apply when the patient has a pulse): Yes Patient will accept intubation for respiratory d eterioration: No Patient will accept BiPAP for respiratory deteri oration: Unaddressed Patient will accept vasopressors for hypotension : Unaddressed Patient will accept cardioversion for unstable r hythm: Unaddressed Discussed Code Status With Whom? Patient * DNR Date Activated Date Inactivated Comments 02/26/2024 8:22 AM 02/29/2024 12:11 PM Question Answer Comments Does the Patient have prefer ences regarding life sustaining measures (these options only apply when the patient has a pulse): Yes Patient will accept intubation for respiratory d eterioration: No Patient will accept BiPAP for respiratory deteri oration: Unaddressed Patient will accept vasopressors for hypotension : Unaddressed Patient will accept cardioversion for unstable r hythm: Unaddressed Discussed Code Status With Whom? PatientFamily Health Care Directive and/or Previous Code/End of Life Pref Reviewed? Yes * DNR Date Activated Date Inactivated Comments 02/26/2024 8:21 AM 02/26/2024 8:22 AM Question Answer Comments Does the Patient have prefer ences regarding life sustaining measures (these options only apply when the patient has a pulse): Yes Patient will accept intubation for respiratory d eterioration: No Patient will accept BiPAP for respiratory deteri oration: Unaddressed Patient will accept vasopressors for hypotension : Unaddressed Patient will accept cardioversion for unstable r hythm: Unaddressed Discussed Code Status With Whom? Patient Health Care Directive and/or Previous Code/End of Life Pref Reviewed? Yes * DNR Date Activated Date Inactivated Comments 02/23/2024 11:36 AM 02/26/2024 8:21 AM Question Answer Comments Does the Patient have prefer ences regarding life sustaining measures (these options only apply when the patient has a pulse): No Discussed Code Status With Whom? Patient Health Care Directive and/or Previous Code/End of Life Pref Reviewed? Yes Care Teams Tack Coverer Relationship Specialty Start Date End Date Geri Clancy DO [address] [place] [address] PCP - General 02/14/24
--- OUTSIDE RECORDS SUMMARY | 2024-06-01 20:05 | XMS_ITS | Encounter Summary ---
Author Organization [facility] Address [address] [place] [phone] Phone Care Team Providers Care Isotope Hydrologist Name Role Phone DarylGeri ornelas Primary Care Provider [phone] Encounter Details Date Type Department Care Team (Late st Contact Info) Description 02/12/2024 Documentation Only Unspecified Department [place] Unknown, Provider Social History Tobacco Use Types Packs/Day Years [...] the money to buy more. 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
--- OUTSIDE RECORDS SUMMARY | 2024-06-01 20:05 | XMS_ITS | Referral Summary ---
Author Organization [facility] Address [address] [place] [address] Phone Care Team Providers Care Hook And Eye Machine Operator Name Role Phone Geri Clancy DO Primary Care Provider Source Comments [employer] is fully rolled out on [employer]. Last update 11/01/08.Curtis [employer] Encounters Date Type Department Care Team Description 05/17/2024 [facility]phone [facility] [address] [place] [address] [phone] Abril Dotson RN 05/16/2024 11:00 AM SECURITY ENGINEER Telemedicine [facility] [address] [place] [address] [phone] Elizabeth Arechiga MD Closed displaced segmental fracture of shaft of right humerus with routine healing, subsequent encounter (Primary Dx) Discharge Disposition: Discharged to home or self care 03/28/2024 Travel 03/28/2024 8:53 AM CDT - 03/28/2024 11:59 PM CDT Hospital Encounter [facility] [address] [place] [address] [phone] Brittni Perrin PA-C Discharge Disposition: Discharged to home or self care 03/28/2024 8:54 AM CDT - 03/28/2024 11:59 PM CDT Hospital Encounter [facility] [address] [place] [address] [phone] Brittni Perrin PA-C Discharge Disposition: Discharged to home or self care 03/28/2024 9:45 AM CDT Office Visit [facility] [address] [place] [address] [phone] Xiang Davidson MD Closed fracture of neck of right femur, initial encounter ([facility]) (Primary Dx); Multiple closed fractures of pelvis with stable disruption of pelvic ring, initial encounter ([facility]); History of bilateral hip hemiarthroplasty; Peroneal nerve palsy, right Discharge Disposition: Discharged to home or self care 03/28/2024 8:55 AM CDT - 03/28/2024 11:59 PM CDT Hospital Encounter [facility] [address] [place] [address] 20221 Brittni Perrin PA-C Discharge Disposition: Discharged to home or self care 03/28/2024 10:00 AM CDT Office [facility] [address] [place] [address] [phone] Elizabeth Arechiga MD Closed displaced segmental fracture of shaft of right humerus, initial encounter (Primary Dx) Discharge Disposition: Discharged to home or self care 02/29/2024 12:26 PM CDT - 03/15/2024 11:36 AM CDT Hospital [facility] [address] [place] [address] [id number] [place] [address] Ramon Torres, Aris De Los Santos DO Tzivion, Amit, MD Multiple closed fractures of pelvis with stable disruption of pelvic ring, initial encounter ([facility]) Discharge Disposition: Discharged/transd to SNF with Medicare certification from Last 3 Months Allergies Active Allergy Reactions Criticality Noted Date [...] tablet (1,000 UNITS) by mouth daily. 02/20/20 Active multivitamin + minerals (CEROVITE SENIOR) oralIndication s:nutritional support Take 1 tablet by mouth daily with lunch. 02/20/20 Active amLODIPine (NORVASC) 5 mg oral TABSIndication s:Hypertension Take 1 tablet (5 mg) by mouth daily. 03/01/20 Active acetaminophen (TYLENOL) 325 mg oral tabletIndicati [...] stable disruption of pelvic ring, initial encounter ([facility]) 02/21/2024 Vitamin D insufficiency 02/14/2024 SDH (subdural hematoma) ([facility]) 02/13/2024 Closed fracture of neck of r ight femur, initial encounter ([facility]) 02/13/2024 Closed displaced segmental f racture of shaft of right humerus, initial encounter 02/13/2024 Immunizations Name Administration Dates Next Due COVID-19 Vaccine Monovalent (PFIZER-COMIRNATY) 12 Years and Older 02/26/2024 Influenza Vaccine - High-Dos e, Trivalent, Preservative Free 03/13/2024 Social History Tobacco Use Types Packs/Day Years [...] on file Legal Sex Female 9:55 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 Gender Identity Not on file Sexual Orientation [...] 02/29/2024 1:00 PM CDT Plan of Treatment Not on file Medical Devices Implanted Type Area Electric Container Tester Device Identifier Shelf Expiration Date Model / Serial / Lot *Bone Cement, Simplex P Full Dose 6191-1-010 Implanted:Qty: 1 on 02/13/2024 by Xiang Davidson MD at [facility] Cement Right: Femur [employer] 09/26/2025 6191-1-010 / / [id number] *Bone Cement, Simplex P Full Dose [id number] Implanted:Qty: 1 on 02/13/2024 by Xiang Davidson MD at [facility] Cement Right: Femur [employer] 09/26/2025 6191-1-010 / / [id number] Tigertape Cerclage W/O Needl White/Black Implanted:Qty: 1 on 02/17/2024 by Elizabeth Arechiga MD at [facility] Right: Humerus [employer] 03/29/2028 [id number] / / [id number] Fibertape Crclg Straight Passer Med White Dispos Implanted:Qty: 1 on 02/17/2024 by Elizabeth Arechiga MD at [facility] Right: Humerus [employer] AR-[id number] / / Head Unipolar 51mm Implanted:Qty: 1 on 02/13/2024 by Xiang Davidson MD at [facility] Right: Femur [employer] 06/28/2031 [id number] / / [id number] Femoral Stem Synergy Size 15 Implanted:Qty: 1 on 02/13/2024 by Xiang Davidson MD at [facility] Right: Femur [employer] 02/15/2032 [id number] / / [id number] Sleeve Tapered +0mm Implanted:Qty: 1 on 02/13/2024 by Xiang Davidson MD at [facility] Right: Femur [employer] 09/06/2033 [id number] / / [id number] Centralizer Hip Distal Size 12 Implanted:Qty: 1 on 02/13/2024 by Xiang Davidson MD at [facility] Right: Femur [employer] 10/10/2033 [id number] / / [id number] 30mm Cancellous Locking Screw, Fully Threaded, 4mm Implanted:Qty: 1 on 02/17/2024 by Elizabeth Arechiga MD at [facility] Right: Humerus [employer] 8124-030 / / Description:Arthrex Proximal Humeral Plating System 30mm Cortical Bone Screw, 3.5mm Implanted:Qty: 1 on 02/17/2024 by Elizabeth Arechiga MD at [facility] Right: Humerus [employer] 8110-030 / / Description:Arthrex Proximal Humeral Plating System 26mm Locking Screw, 3.5mm Implanted:Qty: 3 on 02/17/2024 by Elizabeth Arechiga MD at [facility] Right: Humerus [employer] 8114-026 / / Description:Arthrex Proximal Humeral Plating System Alpha Plate, Right Implanted:Qty: 1 on 02/17/2024 by Elizabeth Arechiga MD at [facility] Right: Humerus [employer] [id number] / / Description:Arthrex Proximal Humeral Plating System Fibertape Cerclage Suture Implanted:Qty: 1 on 02/17/2024 by Elizabeth Arechiga MD at [facility] Right: Humerus [employer] 03/29/2028 AR-7268 / / [id number] Fibertape Cerclage Suture Implanted:Qty: 2 on 02/17/2024 by Elizabeth Arechiga MD at [facility] Right: Humerus [employer] 07/27/2028 AR-7268 / / [id number] 22mm Cancellous Locking Screw, Fully Threaded, 4mm Implanted:Qty: 2 on 02/17/2024 by Elizabeth Arechiga MD at [facility] Right: Humerus [employer] 8124-022 / / Description:Arthrex Proximal Humerus Plating System Procedures Procedure Name Priority Date/Time Associated Diagnosis Comments XR PELVIS 3 V AP &INLET/OUTLET Routine 03/28/2024 9:40 AM CDT Multiple closed fractures of pelvis with stable disruption of pelvic ring, initial encounter ([facility]) XR HUMERUS RIGHT 2 V AP + [...] Impression: Stable alignment. Reading Radiologist: Yaya Benjamin us Blanca Ovalles APRN, FULL STACK PYTHON DEVELOPER RAD XRAY Ramona l Result * XR [...] change in alignment. Reading Radiologist: Yaya Benjamin Brittni Perrin PA-C RAD XRAY Final Resu lt * (ABNORMAL) PROTHROMBIN (PT) & INR (03/15/2024 7:06 AM CDT) Only the most recent of12 resultswithin the time period is included. PT 27.1(H) 9.0 - 12.[address] [facility] INR 2.4(H) 0.8 - 1.1 [facility] Comment: Warfarin Therapeutic Range: Standard Intensity: 2.0 - 3.0 High Intensity: 2.5 - 3.5 Blood 03/15/2024 7:06 AM CDT 03/15/2024 7:[address] [facility] - 03/15/2024 7:50 AM CDT Which anti-coagulants is the patient taking: COUMADIN Ramon Torres DO LABORATORY Fin al Result [facility] [address] [address] * (ABNORMAL) CBC WITH PLATELET (03/13/2024 7:44 AM CDT) Only the most recent of13 resultswithin the time period is included. WBC 6.30 4.00 - 10.00 k/cmm [facility] RBC 3.43(L) 3.90 - 5.20 m/cmm [facility] Hgb 10.8(L) 11.5 - 15.7 g/dL [facility] Hematocrit 34.2 34.0 - 45.0 % [facility] MCV 99.7 80.0 - 100.[address] [facility] MCH 31.5 25.0 - 32.[address] [facility] MCHC 31.6 31.0 - 36.0 g/dL [facility] RDW 15.7(H) 11.5 - 14.5 % [facility] Plt 239 150 - 400 k/cmm [facility] MPV 11.3 6.5 - 12.[address] [facility] Blood 03/13/2024 7:44 AM CDT 03/13/2024 7:54 AM CDT us Ramon Torres DO LABORATORY Fin al Result [facility] [address] [address] * (ABNORMAL) PANEL BASIC METABOLIC (BMP) (03/12/2024 9:35 AM CDT) Only the most recent of3 resultswithin the time period is included. Sodium 142 135 - 148 mmol/L [facility] Potassium 3.9 3.5 - 5.3 mmol/L [facility] Chloride 105 92 - 108 mmol/L [facility] CO2 22 22 - 30 mmol/L [facility] AnGap 15 8 - 16 mmol/L [facility] Glucose 153(H) 70 - 100 mg/dL [facility] BUN 23 8 - 23 mg/dL [facility] Creatinine 0.62 0.50 - 1.00 mg/dL [facility] Calcium 9.4 8.8 - 10.2 mg/dL [facility] eGFR (2020 CKD-EPI) 86 >=60 ml/min/1.[address] [facility] Comment: The estimated glomerular filtration rate (eGFR) was calculated using the CKD-EPI 2020 creatinine equation, which does not include race as a factor. This equation is validated in individuals 18 years of age and older, and eGFR is normalized to a body surface area of 1.73m^2. Blood 03/12/2024 9:35 AM CDT 03/12/2024 10:32 AM CDT us Ramon J Pearland-Manthey DO LABORATORY Oh stacie Result - Final [facility] [address] [place] [address] * MR SPINE LUMBAR W/O CONTRAST (03/09/2024 [...] Reading Radiologist: Sybil Moon Resident: Ozzy Osborne 03/10/2024 7:45 AM CDT [...] Radiologist: Sybil Moon Reading Resident: Ozzy Osborne Aris Arlyn DO RAD MR NEURO Final Resu lt [...] abnormality. Degenerative osteoarthritis. Reading Radiologist: French Mancera Ramon Torres DO [...] Hep U <0.04(L) 0.30 - 0.70 IU/mL [facility] Blood 03/03/2024 11:5 4 AM CDT 03/03/2024 12:11 PM CDT Ramon Torres DO LABORATORY Fin al Result [facility] [address] [address] * XR PELVIS INLET AND OUTLET (03/01/2024 [...] lt from Last 3 Months Insurance MEDICARE [facility] Advance Directives For more information, please contact: [phone] Documents on File Type Date Recorded Patient Fleecer Magdalena funez POLST 02/25/2024 12:24 PM ePOLST * DNR [...] of Life Pref Reviewed? Yes Care Teams Hook And Eye Machine Operator Relationship Specialty Start Date End Date Geri Clancy DO [address] [place] [address] PCP - General 02/14/24
--- OUTSIDE RECORDS SUMMARY | 2024-06-01 20:05 | XMS_ITS | Encounter Summary ---
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 She is not sure how she missed the call from us yesterday. She did not get her xrays done and is overwhelmed in how hard it is to travel to appointments. She takes the wheel chair accessible bus. This takes all day. Her nieces and nephews help but she hates to ask too much of them asthey are trying to work. Asked if she would like to follow up in person at [facility] and she does not want to do this either. Reviewed with Dr arechiga OK to follow up closer to home. Spoke to Dr Vargas's office in [place] and they would like op notes to review. Last clinic visit,op notes and face sheet faxed to . ASS FACILITATOR * Telephone Encounter - Abril Dotson RN - 05/17/2024 2:15 PM CST ----- Message from Elizabeth Arechiga sent at 05/17/2024 10:41 AM BIOMASS FACILITATOR ----- Regarding: no answer - unable to do telephone visit, need xrays See above ASS FACILITATOR documented in this encounter Plan of Treatment Not on file documented as of this encounter Visit Diagnoses Not on filedocumented in this encounter Care Teams Dental Laboratory Technician Apprentice Relationship Specialty Start Date End Date Geri Clancy DO [address] [place] [address] PCP - General 02/14/24 documented as of this encounter
--- OUTSIDE RECORDS SUMMARY | 2024-06-01 20:05 | XMS_ITS | Clinical Summary ---
Author Organization [facility] Address [place], [place] [address] Care Team Providers Care Basket Turner Name Role Phone Son Díaz MD Unavailable Unavailabl Geri Love DO Primary Care Provider [facility] [place] Unavailable Allergies Active Allergy Reactions Criticality Noted Date Comments Adhesive Tape 07/28/2006 Penicillins *Unknown - Pt Doesn' t Remember 05/17/2006 Sulfa (Sulfonamide Antibiotics) Nausea Only 05/17/2006 Medications Graduated Compression StockingsIndicatio ns:Venous insufficiency For personal use. Length: calf Strength: 16-20 mmHg Circumference in cm: 1 Packet 3 06/24/19 24 Active ammonium lactate 12 % creamIndications:C allus of foot Apply topically to affected area(s) each time if needed (callus). 140 g 2 12/05/19 24 Active melatonin 3 mg tablet Take 3 mg by mouth at bedtime. Active geriatric multivitamin-iron- minerals (GERITOL; CENTRUM SILVER) tablet Take 1 Tablet by mouth once daily. 02/20/20 24 Active atorvastatin (LIPITOR) 10 mg tabletIndications: Mixed hyperlipidemia Take 1 Tablet (10 mg) by mouth at bedtime. 90 Tablet 3 05/07/20 24 Active losartan (COZAAR) 100 mg tabletIndications: HTN (hypertension) Take 1 Tablet (100 mg) by mouth once daily. 90 Tablet 3 05/07/20 24 Active amLODIPine (NORVASC) 5 mg tabletIndications: HTN (hypertension) Take 1 Tablet (5 mg) by mouth once daily. 90 Tablet 1 05/07/20 24 Active cholecalciferol (Vitamin D) 1,000 unit tabletIndications: Age-related osteoporosis with current pathological fracture with routine healing, subsequent encounter Take 2 Tablets (2,000 units) by mouth once daily. 180 Tablet 3 05/07/20 24 Active calcium carbonate (OS-KACI 500) 500 mg calcium (1,250 mg) tabletIndications: Osteoporosis with current pathological fracture with routine healing, unspecified osteoporosis type, subsequent encounter Take 1 Tablet (500 mg) by mouth two times daily with meals. 180 Tablet 3 05/09/20 24 Active warfarin (COUMADIN) 2 mg tabletIndications: Lupus anticoagulant disorder (HC),Primary hypercoagulable state (HC),Acute deep vein thrombosis (DVT) of popliteal vein of left lower extremity (HC),Anticoagulati on monitoring, INR range 2-3,Personal history of venous thrombosis and embolism Take by mouth 1 mg (2 mg x 0.5) every Mon, Wed, Fri; 2 mg (2 mg x 1) all other days in the evening OR as directed 05/25/20 24 Active ZINC 15 MG TAB 0 03/28/20 07 2023 Discontin ued(Other - add note to specify (E-cancel not sent)) cholecalciferol (VITAMIN D) 1,000 unit tabletIndications: Vitamin D deficiency [The details of the medication are not available because there are pending changes by a home health clinician.] 180 tablet 3 08/30/19 18 2023 Discontin ued(Reord er (E-cancel not sent)) VITAMINS A,C,A-NYXY-LCNKHP (OCUVITE PRESERVISION) [id number],[id number] [id number] tabletIndications: vitamin deficiency prevention Take 1 tablet. by mouth once daily. Indications: treatment to prevent vitamin deficiency 0 03/13/20 18 2023 Discontin ued(Dupli jackie therapy (E-cancel not sent)) diphenhydrAMINE-ac etaminophen 25-500 mg (TYLENOL PM EXTRA STRENGTH) 25-500 mg tabletIndications: Primary hypercoagulable state (HC) Take 1 tablet by mouth at bedtime if needed. Max acetaminophen dose: 4000mg in 24 hrs. 1 tablet 03/19/20 19 2023 Discontin ued(Dupli jackie therapy (E-cancel not sent)) atorvastatin (LIPITOR) 10 mg tabletIndications: Mixed hyperlipidemia Take 1 Tablet (10 mg) by mouth at bedtime. 90 Tablet 3 06/24/19 24 2023 Discontin ued(Reord er (E-cancel not sent)) warfarin (COUMADIN) 2 mg tabletIndications: Lupus anticoagulant disorder (HC),Primary hypercoagulable state (HC),Acute deep vein thrombosis (DVT) of popliteal vein of left lower extremity (HC),Anticoagulati on monitoring, INR range 2-3,Personal history of venous thrombosis and embolism Take by mouth 2 mg (2 mg x 1) every day in the evening OR as directed 90 Tablet 01/16/20 24 2023 Discontin ued(Other - add note to specify (E-cancel not sent)) losartan (COZAAR) 100 mg tablet Take 1 Tablet (100 mg) by mouth once daily. 05/07/20 24 2023 Discontin ued(Dupli jackie therapy (E-cancel not sent)) losartan (COZAAR) 100 mg tabletIndications: hypertension Take 100 mg by mouth once daily. Indications: high blood pressure 2023 Discontin ued(Dupli jackie therapy (E-cancel not sent)) calcium carbonate 500 mg calcium (1,250 mg) chewable tabletIndications: osteoporosis Chew 1,250 mg by mouth two times daily with meals. Indications: osteoporosis, a condition of weak bones 2023 Discontin ued(Dupli jackie therapy (E-cancel not sent)) polyethylene glycoL (MIRALAX) 17 gram/scoop powderIndications: constipation Mix 17 g in liquid then take by mouth once daily. Indications: constipation 2023 Discontin ued(*Nidia ent states no longer taking) amLODIPine (NORVASC) 5 mg tabletIndications: hypertension Take 5 mg by mouth once daily. Indications: high blood pressure 2023 Discontin ued(Dupli jackie therapy (E-cancel not sent)) hydrALAZINE (APRESOLINE) 10 mg tabletIndications: hypertension Take 10 mg by mouth every 6 hours if needed for SBP > (Specify) (160). Indications: high blood pressure 2023 Discontin ued(*Erro r/charge entry error) acetaminophen (TYLENOL) 325 mg tabletIndications: pain Take 3 Tablets by mouth three times daily. Indications: pain 2023 Discontin ued(*Nidia ent states no longer taking) Sennosides 17.2 mg tabIndications:con stipation Take 17.2 mg by mouth 2 times daily if needed (constipation). Indications: constipation 2023 Discontin ued(*Nidia ent states no longer taking) amLODIPine (NORVASC) 5 mg tablet Take 5 mg by mouth once daily. 03/01/20 24 2023 Discontin ued(Dupli jackie therapy (E-cancel not sent)) calcium carbonate (OS-KACI 500) 500 mg calcium (1,250 mg) tablet Take 500 mg by mouth two times daily with meals. 02/19/20 24 2023 Discontin ued(*Disc ontinued by another clinician ) cholecalciferol (VITAMIN D3) 1,000 unit tablet Take 1,000 units by mouth once daily. 02/20/20 24 2023 Discontin ued(Dupli jackie therapy (E-cancel not sent)) melatonin 3 mg tablet Take 3 mg by mouth at bedtime. 03/15/20 24 2023 Discontin ued(Other - add note to specify (E-cancel not sent)) cholecalciferol (Vitamin D) 1,000 unit tabletIndications: Age-related osteoporosis with current pathological fracture with routine healing, subsequent encounter Take 1 Tablet (1,000 units) by mouth once daily. 180 Tablet 1 05/07/20 24 2023 Discontin ued(*Medi cation adjustmen t) warfarin (COUMADIN) 2 mg tabletIndications: Lupus anticoagulant disorder (HC),Primary hypercoagulable state (HC),Acute deep vein thrombosis (DVT) of popliteal vein of left lower extremity (HC),Anticoagulati on monitoring, INR range 2-3,Personal history of venous thrombosis and embolism Take by mouth 1 mg (2 mg x 0.5) every Fri; 2 mg (2 mg x 1) all other days in the evening OR as directed 05/07/20 24 2023 Discontin ued(Reord er (E-cancel not sent)) calcium carbonate (OS-KACI 500) 500 mg calcium (1,250 mg) tabletIndications: Osteoporosis with current pathological fracture with routine healing, unspecified osteoporosis type, subsequent encounter Take 1 Tablet (500 mg) by mouth two times daily with meals. 180 Tablet 3 05/07/20 24 2023 Discontin ued(*Avai lability/ Formulary change/Co st of medicatio n) cholecalciferol (Vitamin D) 1,000 unit tabletIndications: Age-related osteoporosis with current pathological fracture with routine healing, subsequent encounter Take 1 Tablet (1,000 units) by mouth once daily. 90 Tablet 3 05/07/20 24 2023 Discontin ued(*Medi cation adjustmen t) warfarin (COUMADIN) 2 mg tabletIndications: Lupus anticoagulant disorder (HC),Primary hypercoagulable state (HC),Anticoagulati on monitoring, INR range 2-3,Acute deep vein thrombosis (DVT) of popliteal vein of left lower extremity (HC),Personal history of venous thrombosis and embolism Take by mouth 1 mg (2 mg x 0.5) every Fri; 2 mg (2 mg x 1) all other days in the evening OR as directed 100 Tablet 05/07/20 24 2023 Discontin ued(Other - add note to specify (E-cancel not sent)) warfarin (COUMADIN) 2 mg tabletIndications: Lupus anticoagulant disorder (HC),Primary hypercoagulable state (HC),Acute deep vein thrombosis (DVT) of popliteal vein of left lower extremity (HC),Anticoagulati on monitoring, INR range 2-3,Personal history of venous thrombosis and embolism Take by mouth 05/21: Hold; 05/22: Hold; Otherwise 1 mg every Mon, Wed, Fri; 2 mg all other days in the evening OR as directed 05/21/20 24 2023 Discontin ued(Reord er (E-cancel not sent)) Active Problems Problem Noted Date Diagnosed Date 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 Biopsy again colloid nodule 03/2012 Primary hypercoagulable state 10/11/2006 Other and unspecified hyperlipidemia 05/17/2006 Overview (05/17/2006): recently stopped due to abnormal LFT's Mitral valve disorders 05/17/2006 Acute deep vein thrombosis ( DVT) of popliteal vein of left lower extremity 05/17/2006 Overview (12/12/2014): Noted on 2005 Resolved Problems Problem Noted Date Diagnosed Date Resolved Date Bursitis due to trauma 12/01/201003/22 osteopenia 03/28/2007 01/01/2014 Overview (03/17/2010): dexa November. Repeat 2008, osteopenia in the hips. Spine normal . Recheck 3-4 years. SUBCUTANEOUS EMPHYSEMA 05/17/200603/28 VOMITING and DIARRHEA 05/17/20062006 Unspecified intestinal obstruction 05/17/2006 03/28/2007 Overview (05/17/2006): JAYY in Jan 02, also repair of hernia with mesh CELLULITIS, OTHER SPEC SITE- abdominal mesh 05/17/2006 03/28/2007 Overview (05/17/2006): removal of infected mesh 05/04 Peritoneal abscess 05/17/2006 7 Overview (05/17/2006): post surgery in Dec, had 2 different drains in. 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 Colonoscopy 01/2014 no follow up Pulmonary embolism, bilateral 05/17/2006 03/10/2021 Overview (12/12/2014): Noted in 2006 Encounters Date Type Department Care Team Description 06/01/2024 3:30 PM SALES CLERK SUPERVISOR Home Care Visit [facility] [address] [place] [phone] Soto Church, PT PT - HOME VISIT 06/01/2024 10:30 AM SALES CLERK SUPERVISOR Home Care Visit [facility] [address] [place] [address], [place] [phone] Mer Keane COTA OT - HOME VISIT 06/01/2024 Home Care Visit [facility] [address] [place] [address], [place] [phone] Soto Church, PT CARE TRANSITION NOTE 06/01/2024 Telephone [facility] [address] [place] [address] Geri Clancy, DO Questions (Pt transfer ) 05/29/2024 1:15 PM SALES CLERK SUPERVISOR Home Care Visit [facility] [address] [place] [phone] Soto Church, PT PT - HOME VISIT 05/29/2024 10:00 AM SALES CLERK SUPERVISOR Home Care Visit [facility] [address] [place] [phone] Sabrina Carrasquillo RN SN - HOME VISIT 05/29/2024 Travel 05/29/2024 Anticoagulation (warfarin) [facility] [address] [place] [address] 1, [facility] ([facility]) 05/28/2024 12:00 PM SALES CLERK SUPERVISOR Home Care Visit [facility] [address] [place] [phone] Luisa Schroeder VENDING MECHANIC - HOME VISIT 05/25/2024 3:00 PM SALES CLERK SUPERVISOR Home Care Visit [facility] [address] [place] [phone] Soto Church, PT PT - HOME VISIT 05/25/2024 12:00 PM SALES CLERK SUPERVISOR Home Care Visit [facility] [address] [place] [phone] Mer Keane HOLLAND OT - HOME VISIT 05/25/2024 9:30 AM SALES CLERK SUPERVISOR Home Care Visit [facility] [address] [place] [address] Sabrina Carrasquillo, TRACY SN - LONG VISIT (>90 MINUTES) 05/25/2024 Anticoagulation (warfarin) [facility] [address] [place] [address] Geri Clancy DO Error-please disregard (opened in error) 05/25/2024 Orders Only [facility] [address] [facility] [place] [address] Geri Clancy DO Lab 05/25/2024 Orders Only [facility] [address] [facility] [place] [address] Geri Clancy DO Lab (Home care) 05/25/2024 Anticoagulation (warfarin) [facility] [address] [place] [address] 1, [facility] (HC) 05/22/2024 11:30 AM SALES CLERK SUPERVISOR Home Care Visit [facility] [address] [place] [phone] Soto Church, PT PT - HOME VISIT 05/22/2024 Travel 05/21/2024 4:00 PM SALES CLERK SUPERVISOR Home Care Visit [facility] [address] [place] [address] Mer Keane HOLLAND OT - HOME VISIT 05/21/2024 11:30 AM SALES CLERK SUPERVISOR Home Care Visit [facility] [address] [place] [phone] Luisa Schroeder VENDING MECHANIC - HOME VISIT 05/21/2024 10:30 AM SALES CLERK SUPERVISOR Home Care Visit [facility] [address] [place] [phone] Clotilde Rashid, COBOL MAINFRAME DEVELOPER COBOL MAINFRAME DEVELOPER - HOME VISIT 05/21/2024 Telephone [facility] [address] [facility] [address] Geri Clancy, DO Anticoagulation (INR > 5) 05/21/2024 Orders Only [facility] [address] [place] [address] Geri Clancy, DO Lab 05/21/2024 Orders Only [facility] [address] [place] [address] Mike Geurrero MD Lab 05/21/2024 Anticoagulation (warfarin) [facility] [address] [place] [address] 1, [facility] (HC) 05/18/2024 3:00 PM SALES CLERK SUPERVISOR Home Care Visit [place] [id number] [place] [phone] Soto Church, PT PT - HOME VISIT 05/18/2024 1:00 PM SALES CLERK SUPERVISOR Home Care Visit [place] [id number] [place] [phone] Elsi Lopez LISW COMFORT FILLER - INITIAL ASSESSMENT 05/17/2024 2:30 PM SALES CLERK SUPERVISOR Home Care Visit [facility] [address] [place] [phone] Mer Keane, HOLLAND OT - HOME VISIT 05/16/2024 9:00 AM SALES CLERK SUPERVISOR Home Care Visit [facility] [address] [place] [phone] Mer Keane, HOLLAND OT - HOME VISIT 05/15/2024 1:45 PM SALES CLERK SUPERVISOR Home Care Visit [facility] [address] [place] [phone] Soto Church, PT PT - HOME VISIT 05/15/2024 10:30 AM SALES CLERK SUPERVISOR Home Care Visit [facility] [address] [place] [phone] Luisa Schroeder VENDING MECHANIC - HOME VISIT 05/14/2024 1:00 PM SALES CLERK SUPERVISOR Home Care Visit [facility] [address] [place] [address] Sabrina Carrasquillo, TRACY SN - HOME VISIT 05/14/2024 Anticoagulation (warfarin) [facility] [address] [place] [address] 1, [facility] (HC) 05/10/2024 2:30 PM SALES CLERK SUPERVISOR Home Care Visit [facility] [address] [place] [phone] Luisa Schroeder VENDING MECHANIC - HOME VISIT 05/10/2024 12:00 PM SALES CLERK SUPERVISOR Home Care Visit [facility] [address] [place] [phone] Kiki Fernandez, PT PT - INITIAL ASSESSMENT 05/09/2024 2:30 PM SALES CLERK SUPERVISOR Home Care Visit [facility] [address] [place] [phone] Tanya Centeno, OT OT - INITIAL ASSESSMENT 05/08/2024 Telephone [facility] [address] [place] [address] Geri Clancy DO Medication Management (calcium carbonate (OS-KACI 500) 500 mg calcium (1,250 mg) tablet/) 05/07/2024 1:50 PM SALES CLERK SUPERVISOR Office Visit [facility] [address] [place] [address] Geri Clancy DO Hospital F/U (hip and shoulder fracture) 05/07/2024 9:00 AM SALES CLERK SUPERVISOR Home Care Visit [facility] [address] [place] [phone] Sabrina Carrasquillo, TRACY SN - OASIS START OF CARE 05/07/2024 Travel 05/07/2024 Telephone [facility] [address] [place] [address] Sabrina Carrasquillo, phone banker 05/07/2024 Orders Only [facility] [address] [place] [address] Geri Clancy, DO <No scans attached> 05/07/2024 Plan of Care Documentation [facility] [address] [place] [phone] 05/07/2024 Telephone [facility] [address] [place] [address] Geri Clancy, Anticoagulation (orders) 05/07/2024 Anticoagulation (warfarin) [facility] [address] [place] [address] 1, [facility] ([facility]) 05/04/2024 Home Care Visit [facility] [address] [place] [phone] Rosalba Weller RN CARE COORDINATION 05/02/2024 Telephone [facility] [address] [place] [address] Geri Clancy, Home Care (Orders needed ) 05/02/2024 Telephone [facility] [address] [place] [address] Geri Clancy, Anticoagulation (Chart update/1st Overdue Reminder) 04/30/2024 Transcribe Orders [facility] [address] [place] [phone] Hussain Alexandra MD 04/25/2024 Telephone [facility] [address] [place] [address] Geri Clancy, DO Anticoagulation (TCU d/c date) 04/23/2024 Telephone [facility] [address] [place] [address] Geri Clancy, Home Care 04/17/2024 Telephone [facility] [address] [place] [address] Geri Clancy, DO Anticoagulation (CHART UPDATE ) 04/10/2024 Telephone [facility] [address] [place] [address] Geri Clancy, DO Anticoagulation (CHART UPDATE ) 04/03/2024 Telephone [facility] [address] [facility] [address] Geri Clancy, DO Anticoagulation (Standing Labs) 03/19/2024 Lab Requisition [facility] [phone] Hussain Alexandra MD 03/19/2024 Anticoagulation (warfarin) [facility] [address] [facility] [address] 1, [facility] (Chart Update ) 03/18/2024 Telephone [facility] [address] [facility] [place] [address] Geri Clancy, DO Anticoagulation (CHART UPDATE RECENT INR ) from Last 3 Months Immunizations Name Administration Dates Next Due AMB Influenza, IIV3 (Age >=3 years)(Flu Clinic Only) 03/20/2013,03/26/2008 COVID-19 VACCINE SPIKEVAX (M ODERNA 50MCG/0.5ML) 12YO+ PFS 02/24/2023 COVID-19 vaccine (Moderna 100mcg/0.5mL) PF, MDV 08/07/2020,07/10/2020 COVID-19 vaccine (Moderna 50mcg/0.5mL) 12YO+ BIVALENT PF, MDV 03/24/2022 Influenza, High-dose Inactivated 024,03/07/2019,03/17/2016,2014,03/20/2014 Influenza, High-dose Quadriv alent Inactivated 03/17/2022 Influenza, IIV3 (Age >=3 years) 03/20/20 13,03/08/2012,03/22/2011,2009,02/12/2009,03/26/2008,03/28/2007,1 06/22/2005,03/25/2005,03/12/2004, 003,03/30/2002,02/27/2001 Influenza, Inactivated AIIV4 (Age 65+ Years) Preserv Free 02/16/2023,03/09/2021,03/05/2020 Influenza, Inactivated IIV3 (Age 65+ Years) Preserv Free 02/08/2018,03/23/2017 Pneumococcal Poly,23-Valent (Pneumovax) 01/24/2005 Pneumococcal conj 13-Valent (Prevnar 13) 04/18/2015 Td (Age >=7 Years) 01/14/2003 Tdap 07/04/2023,04/17/2012,01/14/2003 Zoster (Shingrix-RZV, recombinant) 11/19/2019, Zoster (Zostavax-ZVL, live) 11/19/2019, 0,02/12/2009 Family History Medical History Relation Name Comments Hypertension Mother Cancer-colon Paternal Grandfather Cancer-breast Sister Diagnosed age 70 Cancer-ovarian No Family History Relation Name Status Comments Father Mother (Age 69) brain tumo r Paternal Grandfather Sister Social History Tobacco Use Types Packs/Day Years Used Date Smoking Tobacco: Never Smokeless Tobacco: Never Tobacco Cessation:Counseling Given: Yes Alcohol Use Standard Drinks/Week Comments Yes 0 (1 standard drink = 0.6 oz pur e alcohol) ocasional [facility] Utilities Answer Date Recorded Do you have trouble paying f or utilities (for example, heat, electricity, water, phone)? Yes 11/08/2023 PHQ-2 Answer Date Recorded PHQ-2 TOTAL SCORE 0 06/24/2023 Social Connections Answer Date Recorded Do you often feel lonely or isolated from those around you? 0 11/08/2023 Alcohol Use Answer Date Recorded How often do you have a drink containing alcohol ? 3 03/22/2022 How many drinks containing a lcohol do you have on a typical day when you are drinking? 0 03/22/2022 How often do you have five or more drinks on one occasion? 0 03/22/2022 Financial Resource Strain Answer Date R ecorded Difficulty of Paying Living Expenses 3 11/08/2023 Difficulty of Paying Living Expenses Not on file 11/08/2023 Food Insecurity Answer Date Recorded Do you worry your food will run out before you are able to buy more? 1 11/08/2023 Transportation Needs Answer Date Record ed Does lack of transportation keep you from medica l appointments? 1 11/08/2023 Does lack of transportation keep you from work, meetings or getting things that you need? 1 11/08/2023 Housing Stability Answer Date Recorded What is your housing situation today? 1 11/08/2023 Comments No Sex and Gender Information Value Date Recorded Sex Assigned at Not on file Legal Sex Female 5:25 AM SALES CLERK SUPERVISOR Gender Identity Not on file Sexual Orientation Not on file Obstetrics History Para Term AB IAB SAB Ectopic Multiple Livin g Live Births 0 0 0 0 0 0 0 0 0 0 Last Filed Vital Signs Vital Sign Reading Time Taken Comments Blood Pressure 124/70 06/01/2024 11:43 AM SALES CLERK SUPERVISOR Pulse 74 06/01/2024 3:39 PM SALES CLERK SUPERVISOR Temperature 36.9 C (98.4 F) 06/01/2024 3:39 PM SALES CLERK SUPERVISOR Respiratory Rate 18 06/01/2024 3:39 PM SALES CLERK SUPERVISOR Oxygen Saturation 98% 06/01/2024 3:39 PM SALES CLERK SUPERVISOR Inhaled Oxygen Concentration - - Weight 68.9 kg (152 lb) 05/07/2024 2:52 PM SALES CLERK SUPERVISOR Height 172.7 cm (5' 8) 05/07/2024 10:05 AM SALES CLERK SUPERVISOR Body Mass Index 23.11 05/07/2024 10:05 AM SALES CLERK SUPERVISOR Plan of Treatment Upcoming Encounters Date Type Department Care Team (Late st Contact Info) Description 06/04/2024 10:30 AM SALES CLERK SUPERVISOR Home Care Visit [facility] [address] [place] [phone] Sabrina Carrasquillo RN 06/04/2024 12:15 PM SALES CLERK SUPERVISOR Home Care Visit [facility] [address] [place] [phone] Luisa Schroeder 06/05/2024 3:00 AM SALES CLERK SUPERVISOR Home Care Visit [facility] [address] [place] [phone] Soto Church, PT [address] [place] [address] 06/06/2024 6:30 AM SALES CLERK SUPERVISOR Home Care Visit [place] [address] [place] [phone] Taryn, Chrispen, OT [address] [place] [address] 06/08/2024 2:30 PM SALES CLERK SUPERVISOR Home Care Visit [facility] [address] [place] [phone] Soto Church, PT [address] [place] [address] 06/11/2024 4:00 AM SALES CLERK SUPERVISOR Home Care Visit [facility] [address] [place] [phone] Sabrina Carrasquillo, RN 06/12/2024 4:00 AM SALES CLERK SUPERVISOR Home Care Visit [facility] [address] [place] [phone] Luisa Schroeder L 06/13/2024 3:00 AM SALES CLERK SUPERVISOR Home Care Visit [facility] [address] [place] [phone] Soto Church, PT [address] [place] [address] 06/18/2024 4:00 AM SALES CLERK SUPERVISOR [facility] Visit [facility] [facility] [address] [place] [phone] Sabrina Carrasquillo, TRACY 06/19/2024 4:00 AM SALES CLERK SUPERVISOR Home Care Visit [facility] [address] [place] [phone] Elda Krin L 06/20/2024 3:00 AM SALES CLERK SUPERVISOR Home Care Visit [facility] [address] [place] [phone] Soto Church, PT [address] [place] [address] 06/25/2024 4:00 AM SALES CLERK SUPERVISOR Home Care Visit [facility] [address] [place] [phone] Sabrina Carrasquillo, TRACY 06/26/2024 4:00 AM SALES CLERK SUPERVISOR Home Care Visit [facility] [address] [place] [phone] Luisa Schroeder 06/27/2024 3:00 AM SALES CLERK SUPERVISOR Home Care Visit [facility] [address] [place] [phone] Soto Church, PT [address] [place] [address] 07/02/2024 4:00 AM SALES CLERK SUPERVISOR Home Care Visit [facility] [address] [place] [phone] Sabrina Carrasquillo RN 07/04/2024 3:00 AM SALES CLERK SUPERVISOR Home Care Visit [facility] [address] [place] [phone] Soto Church, PT [address] [place] [address] 09/05/2024 1:00 PM CDT Office Visit [facility] [address] [place] [address] Geri Clancy DO [address] [place] [address] Health Maintenance Due Date Last Done Comments RSV vaccine for adults or (1 - 1-dose 75+ series) 2010 BMI (ht and wt on same day) for age 18+ 06/24/2024 06/24/2023, 03/22/2022, 03/09/2021, Additional history exists Depression screening for age 12+ 06/24/2024 06/24/2023, 03/23/2022, 03/22/2022, Additional history exists Medicare Wellness for age 65+ 06/24/2024, 03/22/2022, 03/09/2021, Additional history exists Tetanus booster 07/04/2033 07/04/2023, 03/30, 01/14/2003, Additional history exists Pneumococcal series for age 50+ Completed 5, 01/24/2005 Zoster (shingles) series for age 50+ Completed 11/19/2019, 11/19/2019, 06/07/2019, Additional history exists DEXA/DXA scan for age 65+ Completed 2020, 01/25/2019, 11/23/2016, Additional history exists Tdap Completed 07/04/2023, 03/30, 01/14/2003 COVID-19 vaccine series Completed 02/26/20 24, 02/24/2023, 03/24/2022, Additional history exists Influenza for age 65+ Completed 03/13/2024 , 02/16/2023, 03/17/2022, Additional history exists Procedures Procedure Name Priority Date/Time Associated Diagnosis Comments INR,POCT Routine 05/29/2024 PROTIME-INR Routine 05/25/2024 10:34 AM SALES CLERK SUPERVISOR Anticoagulation monitoring, INR range 2-3 PROTIME-INR Routine 05/21/2024 11:58 AM SALES CLERK SUPERVISOR Lupus anticoagulant disorder (HC) Primary hypercoagulable state (HC) Acute deep vein thrombosis (DVT) of popliteal vein of left lower extremity (HC) Anticoagulation monitoring, INR range 2-3 INR,POCT Routine 05/14/2024 INR,POCT Routine 05/07/2024 BASIC METABOLIC PANEL Routine 03/20/2024 9:05 AM CDT Anemia, unspecified Essential (primary) hypertension CBC W PLT NO DIFF Routine 03/20/2024 9:0 5 AM CDT Anemia, unspecified Essential (primary) hypertension XR DXA BONE DENSITY 2 SITES AXIAL Routine 03/12/2021 11:27 AM CDT Post-menopausal from Last 3 Months or Most Recently Relevant to Health Maintenance Results * (ABNORMAL) INR,POCT (05/29/2024) Only the most recent of3 resultswithin the time period is included. INR 1.6(A) 0.0 - 1.2 [facility] Blood BLOOD SPECIMEN / Unknown 05/29/2024 us Patient Reported LABORATORY Final Result Performing Organization Address City/[facility] Co de Phone Number [address] [address] * (ABNORMAL) PROTIME-INR (05/25/2024 10:34 AM SALES CLERK SUPERVISOR) Only the most recent of2 resultswithin the time period is included. Pathologist [facility] INR 2.4(H) <1.3 05/25/2024 11:18 AM SALES CLERK SUPERVISOR [facility] PROTIME 27.3(H) 10.6 - 12.4 sec 05/25/2024 11:18 AM SALES CLERK SUPERVISOR [facility] Blood BLOOD SPECIMEN / Unknown Non-Lab Venipuncture / Unknown 05/25/2024 10:34 AM SALES CLERK SUPERVISOR 05/25/2024 11:12 AM SALES CLERK SUPERVISOR [facility] LABORATORY - 05/25/2024 11:18 AM SALES CLERK SUPERVISOR Therapeutic Range 2.0-3.0 for most anticoagulated patients 2.5-3.5 or 4.0 for high risk patients The INR is only used for patients on stable oral anticoagulant therapy. It makes no significant contribution to the diagnosis or treatment of patients whose Protime is prolonged for other reasons. INR results are increased when heparin levels exceed 1.0 U/mL, which corresponds to an aPTT >125 seconds if the patient is on UFH. Geri Clancy DO HEMATOLOGY Final Resul t Performing Organization Address City/[facility]/ZIP Co de Phone Number [facility] [address] [place] [address] * (ABNORMAL) CBC W PLT NO DIFF (03/20/2024 9:05 AM CDT) WHITE BLOOD COUNT 6.1 4.5 - 11.0 thou/cu mm 03/20/2024 9:55 AM T [facility] RED BLOOD COUNT 3.36(L) 4.00 - 5.20 mil/cu mm 03/20/2024 9:55 AM T [facility] HEMOGLOBIN 11.2(L) 12.0 - 16.0 g/dL 03/20/2024 9:55 AM T [facility] HEMATOCRIT 34.2 33.0 - 51.0 % 03/20/2024 9:55 AM [facility] MCV 102(H) 80 - 100 fL 03/20/2024 9:55 AM [facility] MCH 33.3 26.0 - 34.0 pg 03/20/2024 9:55 AM [facility] MCHC 32.7 32.0 - 36.0 g/dL 03/20/2024 9:55 AM [facility] RDW 15.5 11.5 - 15.5 % 03/20/2024 9:55 AM [facility] PLATELET COUNT 169 140 - 440 thou/cu mm 03/20/2024 9:55 AM [facility] MPV 12.3(H) 6.5 - 11.0 fL 03/20/2024 9:55 AM [facility] Blood BLOOD SPECIMEN / Unknown Venipuncture / Unknown 03/20/2024 9:05 AM CDT 03/20/2024 9:43 AM CDT us Hussain Alexandra MD HEMATOLOGY Final Result [facility] [address] [place] [address] * (ABNORMAL) BASIC METABOLIC PANEL (03/20/2024 9:05 AM CDT) Pathologist [facility] SODIUM 145 136 - 145 mmol/L 03/20/2024 10:16 AM T [facility] POTASSIUM 3.7 3.5 - 5.1 mmol/L 03/20/2024 10:16 AM [facility] CHLORIDE 108(H) 98 - 107 mmol/L 03/20/2024 10:16 AM [facility] CO2,TOTAL 24 22 - 29 mmol/L 03/20/2024 10:16 AM [facility] ANION GAP 13 5 - 18 03/20/2024 10:16 AM [facility] GLUCOSE 145(H) 70 - 99 mg/dL 03/20/2024 10:16 AM [facility] CALCIUM 9.6 8.8 - 10.2 mg/dL 03/20/2024 10:16 AM [facility] BUN 23 8 - 23 mg/dL 03/20/2024 10:16 AM [facility] CREATININE 0.68 0.50 - 0.90 mg/dL 03/20/2024 10:16 AM [facility] BUN/CREAT RATIO 34(H) - 10:16 AM [facility] eGFR 84(L) >90 mL/min/1.7 3m2 03/20/2024 10:16 AM [facility] Comment:As of 2021, eG FR is calculated by the CKD-EPI creatinine equation without race adjustment. eGFR can be influenced by muscle mass, exercise, and diet. The reported eGFR is an estimation only and is only applicable if the renal function is stable. Blood BLOOD SPECIMEN / Unknown Venipuncture / Unknown 03/20/2024 9:05 AM CDT 03/20/2024 9:42 AM CDT us Hussain Alexandra MD CHEMISTRY Final Result [facility] [address] [place] [address] * (ABNORMAL) XR DXA BONE DENSITY 2 SITES AXIAL (03/12/2021 11:27 AM CDT) Anatomical Region Laterality Modality Spine, HIPS, HIPL, HIPR Other Impressions 03/17/2021 1:30 PM CDT Osteoporosis. RECOMMENDATIONS: The National Osteoporosis Foundation recommends pharmacologic treatment for patients with T-scores of -2.5 or less, patients with prior history of fragility fractures, or patients with 10-year probability of greater than 3% at hips or greater than 20% of suffering major osteoporotic fractures. Recommend continued optimization of calcium and vitamin D intake through dietary means and/or supplementation and regular exercise. Consider pharmacologic therapy for osteoporosis. Follow-up bone density reading in 2 years if therapy initiated to assess therapeutic efficacy. Fosamax discontinued 2016. Anahy Pierre PA-C [facility] 03/17/2021 Narrative 03/17/2021 1:30 PM CDT For Patients: Results are automatically released to your [facility] ([email or web address]) account once available, in compliance with federal regulations. This means that you may see your results before your provider has had a chance to review them. Please allow 2-3 business days for your provider to comment on the results. XR DXA Bone Mineral Density (BMD) EXAM LOCATION: [address] [address] PATIENT NAME: Tracy Lopez DATE OF : 1935 EXAM DATE: 03/12/2021 REQUESTING PROVIDER: Geri Clancy DO GENDER AT : female HEIGHT: 5' 7.72 (03/09/2021) WEIGHT: 170 lb (03/09/2021) MENOPAUSAL STATUS: Postmenopausal RACE/ETHNICITY: White RISK FACTORS: Family History of Osteoporosis and White Race CURRENT MEDICATION FOR BONE LOSS: Alendronate (Fosamax) INDICATION: Post-Menopause COMPARISON DATE(S): 2018 DXA scans are compared to prior studies for a patient only when the two (or more) studies were performed on the same scanner. It is not possible to compare data generated on one scanner to data from another because there are not standards in DXA equipment. This applies even if the two scanners are made by the same critical care rn. PROCEDURE: Dual-energy x-ray absorptiometry performed with routine technique. Reporting is completed in the form of a T-score. The T-score represents the standard deviation from peak bone mass based on young healthy adult. A Z-score is used for diagnosis in premenopausal women, and for men under the age of 50. FINDINGS: RESULT LUMBAR SPINE L1 - L4 BMD: 1.133 g/cm2 T-Score: - 0.4 Z-Score: + 1.1 Change from prior in 2019: Decrease 2.2%. RESULTS FEMUR Right femoral neck BMD: 0.638 g/cm2 T-Score: - 2.9 Z-Score: - 0.7 Change from prior in 2019: Decrease 2.7%. Right hip BMD: 0.714 g/cm2 T-Score: - 2.3 Z-Score: - 0.3 Change from prior in 2019: Decrease 3.6%. WHO criteria: Normal: T-score at or above -1 SD Osteopenia: T-score between -1.1 and -2.4 SD Osteoporosis: T-score at or below -2.5 SD Geri Del Rosario Julieth DO DEXA Final Resul t from Last 3 Months or Most Recently Relevant to Health Maintenance Insurance MEDICARE PB ONLY MEDICARE PART A HB ONLY [facility] MEDICARE PART B HB ONLY [facility] MEDICARE PPS Advance Directives * DNR (Latest Code Status on File) Date Activated Date Inactivated Comments 05/11/2024 5:33 PM DNR/DNI. [place] ctive treatment. POLST dated March 15, 2024 * Full Code Date Activated Date Inactivated Comments 05/17/2006 9:33 PM 05/27/2006 5:38 PM Care Teams Basket Turner Relationship Specialty Start Date End Date Geri Clancy DO [address] [place] [address] PCP - General Family Practice 03/23/17 Son Díaz MD Surgery - General 04/17/12 [place] [id number] [address] [address] 05/04/24
[2024-06-01 20:11] LABS: Basophils Absolute Auto 0.04 K/uL (0.00-0.30); Basophils Percent Auto 0.5 % (0.0-3.0); Eosinophils Percent Auto 1.1 % (0.0-7.0); Hematocrit 35.1 % (33.0-51.0); Hemoglobin* 11.7 gm/dL (12.0-16.0); Immature Granulocytes Abs Auto 0.01 K/uL (0.00-0.30); Immature Granulocytes Pct Auto 0.1 %; Lymphocytes Percent Auto 19.3 % (20-44); Mean Corpuscular HGB Conc 33 gm/dL (32-36); Mean Corpuscular Hemoglobin 31 pg (26-34); Mean Corpuscular Volume 94 fL (80-100); Platelet Count* 247 K/uL (140-440); RDW Coefficient of Variation % 13.3 % (11.5-15.5); Red Blood Count 3.75 m/uL (4.00-5.20); White Blood Count* 8.84 K/uL (4.50-11.00)
[2024-06-01 20:29] LABS: Chloride* 106 mmol/L (96-114); Potassium* 3.5 mmol/L (3.6-5.1); Sodium* 138 mmol/L (135-149)
[2024-06-01 20:32] LABS: Anion Gap 11 mEq/L (7-15); Blood Urea Nitrogen* 29 mg/dL (7-30); Carbon Dioxide* 21 mmol/L (20-32); Creatinine* 0.9 mg/dL (0.5-1.5); Est. Creatinine Clearance* 39.23; Estimated Glomerular Filt Rate 61 ml/min
[2024-06-01 20:33] LABS: Glucose* 109 mg/dL (60-115)
[2024-06-01 20:35] LABS: C Reactive Protein* 3.9 mg/dL (0.5-1.0)
[2024-06-01 20:42] LABS: Slide Review Reflex No
[2024-06-01 21:17] LABS: INR 1.34 (0.91-1.10); Prothrombin Time 17.5 Seconds
== END 2024-06-01 22:02 | disposition other institution (70) ==
PROVIDERS: Emergency Provider Emergency Medicine; PCP Family Medicine
DX: M25.511 Pain in right shoulder (principal); Z79.01 Long term (current) use of anticoagulants
CPT/HCPCS: 36415; 73030; 80048; 85025; 85610; 86140; 99284

== ENCOUNTER 2024-06-01 21:40 | Outpatient (CLI) | payer MEDICARE, BC, SELFPAY | END 2024-06-01 21:41 | disposition home or self-care (01) | LOC: AMB 06-11 04:34 | PROVIDERS: PCP Family Medicine; Visit Provider Emergency Medicine | DX: S42.201K Unspecified fracture of upper end of right humerus, subsequent encounter for fracture with nonunion (principal) | CPT/HCPCS: A0425; A0428 ==

== ENCOUNTER 2024-08-09 14:16 | Outpatient (RCR) | payer MEDICARE, BC, SELFPAY ==
--- NOTE | 2024-08-09 17:41 | OT.OPODN ---
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 Weakness RUE Date of Onset 04/22/24 Other Conditions 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 - Unspecified rotator cuff tear or rupture of unspecified shoulder, not specified as traumatic (ICD-10 ) M12.819 - Other specific arthropathies, not elsewhere classified, unspecified shoulder (ICD-10) Right shoulder pain M25.511 - Pain in right shoulder (ICD-10) MRSA (methicillin resistant Staphylococcus aureus) () A49.02 - Methicillin resistant Staphylococcus aureus infection, unspecified site ( ICD-10) Hypokalemia E87.6 - Hypokalemia (ICD-10) Hip strain S76.019A - Strain of muscle, fascia and tendon of unspecified hip, initial encounter (ICD-10) Hemarthrosis of shoulder region M25.019 - Hemarthrosis, unspecified shoulder (ICD-10) 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 - Hemarthrosis, right knee (ICD-10) Fracture of hip S72.009A - Fracture of unspecified part of neck of unspecified femur, initial encounter for closed fracture (ICD-10) Deep vein thrombosis, lower left extremity (2005) I82.402 - Acute embolism and thrombosis of unspecified deep veins of left lower extremity (ICD-10) Bilateral pulmonary embolism ( 2005) I26.99 - Other pulmonary embolism without acute cor pulmonale (ICD-10) Colon cancer C18.9 - Malignant neoplasm of colon, unspecified (ICD-10) Surgical History (Reviewed 08/20 @ 09:41 by Xenia Pedro MD) 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) Z96.642 - Presence of left artificial hip joint (ICD-10) H/O partial resection of colon (01/05/06) Z90.49 - Acquired absence of other specified parts of digestive tract (ICD-10) Status post fine needle aspiration (04/04/12) Z98.890 - Other specified postprocedural states (ICD-10) History of phacoemulsification of cataract of right eye with intraocular lens implantation (07/24/14) Z98.41 - Cataract extraction status, right eye (ICD-10) Z96.1 - Presence of intraocular lens (ICD-10) History of phacoemulsification of cataract of left eye with intraocular lens implantation (08/21/14) Z98.42 - Cataract extraction status, left eye (ICD-10) Z96.1 - Presence of intraocular lens (ICD-10) History of ventral hernia repair (05/04/06) Z98.890 - Other specified postprocedural states (ICD-10) Z87.19 - Personal history of other diseases of the digestive system (ICD-10) History of colostomy (1999) 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 Pt was independent with all self cares and household management , also provided care to her who is w/c bound. Pt ambulated w/o AD and had full use of BUE. Social History Hobbies Pt likes to read, prior to injury, liked to cook Ortho Subjective Subjective Subjective Pt states she had a fall on in her bathroom at home . Pt states she really isn't sure why she fell. Pt sustained a hip fx, numerous and subdural hematoma. Pt ended up at the trauma center where she had hip surgery and ORIF of her RUE humerus. Pt ended up having a second surgery to remove the hardware in her RUE. Pt also had an injury to her radial nerve which has left her with the inability to extend her wrist and fingers. Pt was referred to OT today for fabrication of custom radial nerve palsy splint. Pt is currently at [facility] for rehabilitation and is hopeful that she will be able to return home at some point. Pt states her is in a w/c but is managing on his own at home. Pt's nephew is in attendance today during OT session, appears to be very involved and supportive of patient. Pt states she currently cannot do anything with her right hand as her fingers just hang. Pt has been using a wrist brace since her injury but no support on her fingers. Pt states she currently requires assist with all self cares and she cannot walk without AD and assistance of another person. Pt has moderate pain in her right shoulder. OT OP Daily Ortho Note/Assessment Splinting Splinting Minutes (minutes) 50 Splinting Comments Pt was provided with a custom fabricated, low profile radial nerve orthosis for support of her RUE hand and wrist. Following fabrication, pt was also instructed in how and when to use the orthosis. It was recommended that she utilize the orthosis most of the day with frequent attempts at using her right hand for light, functional tasks such as eating a piece of toast or a cookie, picking up small items, attempts at using silverware. Recommendations were written for staff to remove splint in 2 hours to check skin and then off at night. Pt is to wear splint tomorrow during the day, remove every 3 hours for skin checks. Pt is to wear OTS wrist brace to bed at night. She is to continue with this schedule for 3 days, if all is well, she can transition to full day wear, off at night. Recommendations were made for specific monitoring of the ulnar styloid as this was already quite red from her wrist brace that she had been wearing. Caution was used in custom fabrication with care to provide bump out pressure relief in the area of the ulnar styloid, thin gel pad was also placed in this bump out to reduce pressure. Pt and nephew were provided with lead technical writer's contact information and encouraged to call if there were any questions. Info also provided for [facility] staff. Pt was also given a compression glove to wear under her orthosis as she did present with significant swelling in her fingers and thumb. Home Program Home Program Home Program Initiated Home Program Specifics Splint schedule as documented above. OT Problems Problems Problems Decreased Strength,Decreased Range of Motion,Decreased Dexterity,Decreased Coordination,Gripping,Pinching Other Problems Writing,Opening Containers, Dressing,Fasteners Patient Potential Good Assessment Assessment Assessment Pt is a very pleasant 89yo referred to OT for fabrication of custom radial nerve palsy orthosis for her RUE. Pt was provided with this splint in clinic today. She was also provided with a written wearing schedule including recommendations for skin checks / monitoring for the staff at her [facility]. Pt's nephew was also in attendance. Pt was provided with lead technical writer's contact information and encouraged to call (or have her staff call) if she or staff have any questions. Due to pt's frailty and multiple co-morbidities, she will require assistance of staff for donning and doffing of the orthosis. Pt was also provided with instructions and practice in use of splint during functional tasks such as drinking from a cup, picking up and eating finger food, etc. Pt was pleased with her splint once she was able to use it for these functional tasks. Pt states, I can actually use my hand now. Pt does have another visit scheduled for next week if she needs any modifications / adjustments. Occupational Therapy Treatment Plan - OP Potential Rehabilitation Potential Good Set Goals Goals Set with Patient Yes Goals Goals 1. Pt will be provided with a custom fabricated radial nerve palsy orthosis for the RUE to improve functional grasp and release pattern and for better positioning of her hand to reduce risk for contractures. This goal was met in clinic today. 2. pt will be able to complete light, functional task with use of custom radial nerve palsy orthosis in place. This goal was met in clinic. Pt was able to clam picker a small glass of water and guide it to her mouth to take a drink of water , she was also able to clam picker a large, handled spoon. Pt will continue to work with staff at her L[facility] to progress functional use of RUE with orthosis in place. Treatment Plan Treatment Plan Evaluation,Edema Control, Splinting Expected Frequency Comments 2-3 visits Expected Duration 8-10 Weeks Occupational Therapy Billing Units Treatment Minutes Untimed Treatment Minutes 50 Total Treatment Minutes 50 Ortho Billing Units Wrist/Hand/Finger Orthosis No JNTS 1 Certification Statement Certification Statement I Certify That: Therapy Services Provided, Therapy Plan Established, Therapy Plan Reviewed Recertification Information Recertification Information Initial Certification Date 08/09/24 Recertification Due Date 11/08/24 Reasons to Continue Skilled Therapy Pt may require monitoring and / modifications to her custom orthosis over time. Rehabilitation Potential Good Click To Default 'Per treatment plan' Per treatment plan Continued Plan of Care and Interventions Per treatment plan Provider Signature Required Yes Provider Signature Shows Agreement With POC & Medical Necessity Physician NPI Number Write NPI# Here Physician Comment/Change Comment or Changes Physician Signature & Date Requested Please Sign/Date Here
== END 2024-12-07 23:59 | disposition home or self-care (01) ==
PROVIDERS: PCP Family Medicine; Visit Provider Orthopaedic Surgery
DX: Z47.89 Encounter for other orthopedic aftercare (principal); G56.31 Lesion of radial nerve, right upper limb; R53.1 Weakness; Z51.89 Encounter for other specified aftercare
CPT/HCPCS: L3808

== ENCOUNTER 2025-04-17 09:48 | Outpatient (CLI) | payer MEDICARE, BC, SELFPAY | END 2025-04-17 09:49 | disposition home or self-care (01) | LOC: AMB 04-22 15:37 | PROVIDERS: PCP Family Medicine; Visit Provider Family Medicine | DX: M79.604 Pain in right leg (principal); M25.551 Pain in right hip | CPT/HCPCS: A0425; A0429 ==

== ENCOUNTER 2025-04-17 10:03 | Emergency (ER) | payer MEDICARE, BC, SELFPAY ==
[2025-04-17 10:17] VITALS: BP 175/93; PULSE 90; RESP 18; TEMP 36.8; O2SAT 97; BMI 23.6
--- NOTE | 2025-04-17 10:42 | CRLHL7_ITS ---
For Patients: As a result of the Century Cures Act, medical imaging exams and procedure reports are released immediately into your electronic medical record. You may view this report before your referring provider. If you have questions, please contact your health care provider. Indication: Hip pain Technique: AP tip centered pelvis and two views right hip Comparison: 03/28/2024 Findings/Impression: Hardware from a joint arthroplasty is in satisfactory position without evidence of loosening or infection. Alignment is normal. No sign of acute fracture. No significant changes from the prior exam. 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 Vascular calcifications. Dictated by Soto Mcdonald MD @ 04/17/2025 11:18:34 AM (Electronically Signed)
--- NOTE | 2025-04-17 10:45 | ED.GENADULT ---
HPI - General Adult General Chief complaint: Extremity Pain/Injury, Lower Stated complaint: leg pain Time Seen by Provider: 04/17/25 10:38 History of Present Illness HPI narrative: Patient is a delightful 89-year-old female who lives at [address] [place] [address], she noted her last couple of days she has had difficulty with her right posterior buttock area and right lateral hip. 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 She has had no fever, chills no falls. She is on Coumadin. Denies swelling, denies fever. She typically does not ambulate uses a wheelchair, she usually is able to pivot, but has been unable to do this. Presents to ED for evaluation via ambulance. Related Data Home Medications ?Medication ?Instructions ?Recorded ?Confirmed atorvastatin 10 mg tablet 10 mg PO DAILY 06/29/23 03/06/25 calcium 500 mg (as 1 tab PO BID 06/01/24 03/06/25 carbonate)-vitamin D3 5 mcg (200 unit) tablet (Oyster Shell Calcium-Vitamin D3) losartan 100 mg tablet 100 mg PO DAILY 06/01/24 03/06/25 acetaminophen 325 mg tablet 975 mg PO Q4-6H PRN pain 07/23/24 03/06/25 (Tylenol) melatonin 3 mg tablet 3 mg PO QHS 07/23/24 03/06/25 polyethylene glycol 3350 17 gram 17 g PO QDAY 07/23/24 03/06/25 oral powder packet (Miralax) sennosides 8.6 mg tablet (senna) 8.6 mg PO QDAY 07/23/24 03/06/25 alendronate 70 mg tablet 70 mg PO 12/03/24 03/06/25 warfarin 2 mg tablet 2 mg PO DAILY 12/03/24 03/06/25 amlodipine 2.5 mg tablet 2.5 mg PO DAILY 03/06/25 03/06/25 Allergies Allergy/AdvReac Type Severity Reaction Status Date / Time adhesive Allergy Mild Verified 04/17/25 10:17 Penicillins AdvReac nausea and Verified 04/17/25 10:17 vomiting Sulfa (Sulfonamide AdvReac Nausea Verified 04/17/25 10:17 Antibiotics) Review of Systems Status of ROS: Reports: 6 or more systems reviewed and unremarkable except as noted in History and below PFSH PFSH Medical History Rotator cuff tear arthropathy ?M75.100 - Unspecified rotator cuff tear or rupture of unspecified shoulder, not specified as traumatic (ICD-10) ?M12.819 - Other specific arthropathies, not elsewhere classified, unspecified shoulder (ICD-10) Right shoulder pain ?M25.511 - Pain in right shoulder (ICD-10) MRSA (methicillin resistant Staphylococcus aureus) (06/22/06) ?A49.02 - Methicillin resistant Staphylococcus aureus infection, unspecified site (ICD-10) Hypokalemia ?E87.6 - Hypokalemia (ICD-10) Hip strain ?S76.019A - Strain of muscle, fascia and tendon of unspecified hip, initial encounter (ICD-10) Hemarthrosis of shoulder region ?M25.019 - Hemarthrosis, unspecified shoulder (ICD-10) Hemarthrosis of right knee ?M25.061 - Hemarthrosis, right knee (ICD-10) Fracture of hip ?S72.009A - Fracture of unspecified part of neck of unspecified femur, initial encounter for closed fracture (ICD-10) Deep vein thrombosis, lower left extremity (2005) ?I82.402 - Acute embolism and thrombosis of unspecified deep veins of left lower extremity (ICD-10) Bilateral pulmonary embolism (2005) ?I26.99 - Other pulmonary embolism without acute cor pulmonale (ICD-10) Colon cancer ?C18.9 - Malignant neoplasm of colon, unspecified (ICD-10) Surgical History History of shoulder surgery (06/05/24) ?Z98.890 - Other specified postprocedural states (ICD-10) 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) ?Z96.641 - Presence of right artificial hip joint (ICD-10) History of open reduction and internal fixation (ORIF) procedure (02/17/24) ?Z98.890 - Other specified postprocedural states (ICD-10) 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) ?Z96.642 - Presence of left artificial hip joint (ICD-10) H/O partial resection of colon (01/05/06) ?Z90.49 - Acquired absence of other specified parts of digestive tract (ICD-10) Status post fine needle aspiration (04/04/12) ?Z98.890 - Other specified postprocedural states (ICD-10) History of phacoemulsification of cataract of right eye with intraocular lens implantation (07/24/14) ?Z98.41 - Cataract extraction status, right eye (ICD-10) ?Z96.1 - Presence of intraocular lens (ICD-10) History of phacoemulsification of cataract of left eye with intraocular lens implantation (08/21/14) ?Z98.42 - Cataract extraction status, left eye (ICD-10) ?Z96.1 - Presence of intraocular lens (ICD-10) History of ventral hernia repair (05/04/06) ?Z98.890 - Other specified postprocedural states (ICD-10) ?Z87.19 - Personal history of other diseases of the digestive system (ICD-10) History of colostomy (1999) 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) ?Z96.611 - Presence of right artificial shoulder joint (ICD-10) Social History Smoking Status: Never smoker Do you use any of these nicotine containing products: None Second hand tobacco smoke exposure: No How often do you have a drink containing alcohol: 2-4 times a month AUDIT-C Alcohol total score: 2 Non-prescribed substance use: denies use Exam Narrative: Exam Narrative: Objective vital signs show elevated systolic pressure afebrile Her right pelvis and right hip exam show fairly full range of motion flexion extension right hip distal CMS right lower extremity shows some slight swelling in her ankle and leg consistent with her left. She has ability to internally and externally rotate very limited but does not really seem to stop from pain. There is no anterior hip pain noted or redness or erythema. Const: Vital Signs, click to edit/add: Vital Signs - 24 hr 04/17/25 10:17 Temperature 98.3 F Pulse Rate [Pulse Oximeter] 90 Respiratory Rate 18 Blood Pressure [Ri ght Upper Arm] 175/93 H Pulse Oximetry 97 Oxygen Delivery Me thod Room Air Course Vital Signs Vital signs: Initial Vital Signs Temperature 98.3 F 04/17/25 10:17 Temperature Source Temporal Artery Scan 04/17/25 10:17 Pulse Rate 90 04/17/25 10:17 Respiratory Rate 18 04/17/25 10:17 Blood Pressure 175/93 H 04/17/25 10:17 Blood Pressure Mean 120 H 04/17/25 10:17 Pulse Oximetry 97 04/17/25 10:17 Oxygen Delivery Method Room Air 04/17/25 10:17 Vital Signs Temperature 98.3 F 04/17/25 10:17 Pulse Rate 90 04/17/25 10:17 Respiratory Rate 18 04/17/25 10:17 Blood Pressure 175/93 H 04/17/25 10:17 Pulse Oximetry 97 04/17/25 10:17 Oxygen Delivery Method Room Air 04/17/25 10:17 Temperature 98.3 F 04/17/25 10:17 Pulse Rate 90 04/17/25 10:17 Respiratory Rate 18 04/17/25 10:17 Blood Pressure 175/93 H 04/17/25 10:17 Pulse Oximetry 97 04/17/25 10:17 Oxygen Delivery Method Room Air 04/17/25 10:17 Medical Decision Making MDM Narrative Medical decision making narrative: 89-year-old female who is basically in a wheelchair other than pivoting, presents with right posterior buttock pain right lateral hip pain. She is unable to pivot as per normal. I think could be appropriate given she had a hip arthroplasty to check her x-ray of her pelvis and right hip. Disposition pending findings. Addendum 11:21 a.m. the patient's pelvic x-ray read independently by myself shows no right hip fracture displacement from her arthroplasty, no osteolysis. 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 At this point will write an order for to be weight [facility] for the next few days. Will give her prednisone 20 mg b.i.d. for 3 days to see if that will help this potential inflammatory condition. Have her follow up with regular doctor or [facility] nurse practitioner in the next 2-3 days to see if she can start doing pivoting and bearing weight. Would recommend a physical therapy assessment at the [facility] as well. Discharge Plan Discharge Clinical Impression: Acute pain of right hip Patient Disposition: Home w/ Parent or Adult Condition: Stable Additional Instructions: Recommend 1. Prednisone 20 mg b.i.d. x3 days. 2. Physical therapy consult and treatment at the [facility] for right posterior hip discomfort. 3. Nonweightbearing for the next 2-3 days until evaluated by PT and [facility] provider. 4. Recommend Tylenol to continue 500 to a 1000 mg 4 times a day as needed for pain or discomfort. Return to ED as needed. Activity Detail: Nonweightbearing until re-evaluated in about 3 days Discharge Diet: Regular Prescriptions: No Action atorvastatin 10 mg tablet 10 mg PO DAILY warfarin 2 mg tablet 2 mg PO DAILY Rx Instructions: 2mg at HS every MON, TUES, Wed, FRI, SAT acetaminophen [Tylenol] 325 mg tablet 975 mg PO Q4-6H PRN (Reason: pain) melatonin 3 mg tablet 3 mg PO QHS polyethylene glycol 3350 [Miralax] 17 gram powder in packet 17 g PO QDAY sennosides [senna] 8.6 mg tablet 8.6 mg PO QDAY alendronate 70 mg tablet 70 mg PO amlodipine 2.5 mg tablet 2.5 mg PO DAILY losartan 100 mg tablet 100 mg PO DAILY calcium carbonate-vitamin D3 [Oyster Shell Calcium-Vit D3] 500 mg-5 mcg (200 unit) tablet 1 tab PO BID Follow Up/Referrals: Geri Clancy DO [Referring, Family Practice] Stand Alone Forms: [facility] Info Instructions
== END 2025-04-17 12:54 | disposition home or self-care (01) ==
LOC: ED 11:37
PROVIDERS: Emergency Provider Family Medicine; PCP Family Medicine
DX: M25.551 Pain in right hip (principal)
CPT/HCPCS: 73502; 99283; 99284

== ENCOUNTER 2025-04-17 12:14 | Outpatient (CLI) | payer MEDICARE, BC, SELFPAY | END 2025-04-17 12:15 | disposition home or self-care (01) | PROVIDERS: PCP Family Medicine; Visit Provider Family Medicine | DX: M25.551 Pain in right hip (principal) | CPT/HCPCS: A0425; A0428 ==